=== PATIENT | male | born 1995 | race Caucasian/White ===

== ENCOUNTER 2017-02-08 20:21 | Emergency (ER) | payer BC ==
[2017-02-08] MEDS ORDERED: TORAdol 30 mg Injection IV ONE (20:47)
[2017-02-08] MEDS ORDERED: BENADRYL 50 MG/ML IV ONE (20:47)
[2017-02-08] MEDS ORDERED: Sodium Chloride 0.9% 1000 ML 1,000 ML IV STA (20:47)
--- NOTE | 2017-02-08 20:51 | ERPHSYRPT ---
- History of Present Illness Time Seen by Provider: 02/08/17 20:49 Source: patient Exam Limitations: no limitations Patient Subjective Stated Complaint: pt has been having a headache for 3 days states it goes from the occipital are to the forehead no releif with advil -no history of headaches no fever no injury -fanily thinks its stress pt denies - sometimes painis so bad he can't think Triage Nursing Assessment: pt is awake and alert and able to answer questions Physician History: 21-year-old white male with history of seasonal allergies Arrives with complaint of a headache begins any sacral region and radiates to the frontal region symptoms going on for 2-3 days. Patient without nausea vomiting diaphoresis patient without any focal neurologic symptoms. Past medical history seasonal allergies Timing/Duration: day(s) (2-3 days) Severity: moderate Modifying Factors: Improves With: nothing Associated Symptoms: No nausea, No vomiting, No abdominal pain, No shortness of breath, No heartburn, No diaphoresis, No cough, No chills, No chest pain, No fever, No headaches, No loss of appetite, No malaise, No rash, No syncope, No seizure, No weakness Allergies/Adverse Reactions: No Known Drug Allergies Allergy (Unverified 02/08/17 20:47) Hx Tetanus, Diphtheria Vaccination/Date Given: No Hx Influenza Vaccination/Date Given: No Hx Pneumococcal Vaccination/Date Given: No Immunizations Up to Date: No - Review of Systems Constitutional: No Fever, No Chills Eyes: No Symptoms, No Discharge, No Eye Pain, No Eye Redness, No Itchy, No Photophobia, No Tearing, No Vision Changes, No Double Vision Ears, Nose, & Throat: No Symptoms Respiratory: No Cough, No Dyspnea Cardiac: No Chest Pain, No Edema, No Syncope Abdominal/Gastrointestinal: No Abdominal Pain, No Nausea, No Vomiting, No Diarrhea Genitourinary Symptoms: No Dysuria Musculoskeletal: No Back Pain, No Neck Pain Skin: No Rash Neurological: Headache, No Focal Weakness, No Gait Changes, No Irritability, No Lethargy, No Paralysis, No Parasthesia, No Seizure, No Sensory Changes, No Speech Changes, No Tics, No Tremors, No Vertigo Psychological: No Symptoms Endocrine: No Symptoms All Other Systems: Reviewed and Negative - Past Medical History Pertinent Past Medical History: No Other Medical History: seasonal allergies - Past Surgical History Past Surgical History: No - Social History Smoking Status: Former smoker Exposure to second hand smoke: No Drug Use: none Patient Lives Alone: No - Nursing Vital Signs Nursing Vital Signs: Initial Vital Signs Temperature 97.8 F Temperature Source Oral Pulse Rate 78 Respiratory Rate 18 Blood Pressure [] 125/78 Pain Intensity 10 - Physical Exam General Appearance: no apparent distress, alert Eye Exam: PERRL/EOMI, eyes nml inspection Ears, Nose, Throat Exam: normal ENT inspection, TMs normal, pharynx normal, moist mucous membranes Neck Exam: normal inspection, non-tender, supple, full range of motion Respiratory Exam: normal breath sounds, lungs clear, No respiratory distress Cardiovascular Exam: regular rate/rhythm, normal heart sounds, normal peripheral pulses Gastrointestinal/Abdomen Exam: soft, normal bowel sounds, No tenderness, No mass Back Exam: normal inspection, normal range of motion, No CVA tenderness, No vertebral tenderness Extremity Exam: normal inspection, normal range of motion, pelvis stable Neurologic Exam: alert, oriented x 3, cooperative, normal mood/affect, nml cerebellar function, nml station & gait, sensation nml, No motor deficits Skin Exam: normal color, warm, dry, No rash Lymphatic Exam: No adenopathy SpO2 Interpretation: normal (99%) SpO2: 99 Oxygen Delivery: Room Air - Course Nursing assessment & vital signs reviewed: Yes - CT Exams Head CT Interpretation: Tele-radiologist Report, Other (Head CT: Normal head/ brain CT) Ordered Tests: Active Orders 24 hr Category Date Time Status IV Insertion STAT Care 02/08/17 20:48 Active HEAD WITHOUT CONTRAST [CT] Stat Exams 02/08/17 21:24 Taken CBC W DIFF Stat Lab 02/08/17 21:15 Completed CMP Stat Lab 02/08/17 21:15 Completed Manual Differential NC Stat Lab 02/08/17 21:15 Completed Medication Summary Discontinued Medications Generic Name Dose Route Start Last Admin Trade Name Rogelio PRN Reason Stop Dose Admin Acetaminophen 650 mg 02/08/17 21:40 02/08/17 21:44 Tylenol 325 Mg PO 02/08/17 21:41 650 mg STAT ONE Administration Acetaminophen Confirm 02/08/17 21:42 Tylenol 325 Mg Administered 02/08/17 21:43 Dose 650 mg .ROUTE .STK-MED ONE Diphenhydramine HCl 25 mg 02/08/17 20:47 02/08/17 20:55 Benadryl 50 Mg/Ml IV 02/08/17 20:48 25 mg STAT ONE Administration Diphenhydramine HCl Confirm 02/08/17 20:52 Benadryl 50 Mg/Ml Administered 02/08/17 20:53 Dose 50 mg .ROUTE .STK-MED ONE Sodium Chloride 1,000 mls @ 999 mls/hr 02/08/17 20:47 02/08/17 20:55 Sodium Chloride 0.9% 1000 Ml IV 02/08/17 21:47 999 mls/hr .Q1H1M STA Administration Sodium Chloride Confirm 02/08/17 20:52 Sodium Chloride 0.9% 1000 Ml Administered 02/08/17 20:53 Dose 1,000 mls @ ud .ROUTE .STK-MED ONE Ketorolac Tromethamine 30 mg 02/08/17 20:47 02/08/17 20:55 Toradol 30 Mg Injection IV 02/08/17 20:48 30 mg STAT ONE Administration Ketorolac Tromethamine Confirm 02/08/17 20:52 Toradol 30 Mg Injection Administered 02/08/17 20:53 Dose 30 mg .ROUTE .STK-MED ONE Morphine Sulfate 4 mg 02/08/17 22:45 Morphine Sulfate 4 Mg Inj IV 02/08/17 22:46 STAT ONE Morphine Sulfate Confirm 02/08/17 22:48 Morphine Sulfate 4 Mg Inj Administered 02/08/17 22:49 Dose 4 mg .ROUTE .STK-MED ONE Lab/Rad Data: Laboratory Result Diagrams 02/08/17 21:15 02/08/17 21:15 Laboratory Results 02/08/17 02/08/17 Range/Units 21:15 21:15 WBC 9.4 (4.0-10.5) K/mm3 RBC 4.67 (4.1-5.6) M/mm3 Hgb 14.1 (12.5-18.0) gm/dl Hct 42.6 (42-50) % MCV 91.2 (78-100) fl MCH 30.2 (26-32) pg MCHC 33.1 (32-36) g/dl RDW 13.9 (11.5-14.0) % Plt Count 307 (150-450) K/mm3 MPV 9.8 H (6-9.5) fl Segmented Neutrophils 55 (36.-66.) % Band Neutrophils 1 (0.0-2.0) % Lymphocytes (Manual) 29 (24-44) % Monocytes (Manual) 8 (0.0-12.0) % Eosinophils (Manual) 5 H (0.00-3.0) % Differential Comment NORMAL Atypical Lymphocytes 2 % Platelet Estimate NORMAL (NORMAL) Sodium 141 (136-145) mEq/L Potassium 4.1 (3.5-5.1) mEq/L Chloride 105 (98-107) mEq/L Carbon Dioxide 24.1 (21-32) mEq/L Anion Gap 15.5 H (5-15) MEQ/L BUN 10 (9-20) mg/dL Creatinine 0.96 (0.55-1.30) mg/dl Estimated GFR > 60 ML/MIN Glucose 93 (70-110) MG/DL Calcium 8.8 (8.5-10.1) mg/dL Total Bilirubin 0.20 (0.2-1.0) mg/dL AST 41 H (15-37) U/L ALT 46 (12-78) U/L Alkaline Phosphatase 80 (46-116) U/L Serum Total Protein 7.1 (6.4-8.2) gm/dL Albumin 3.5 (3.4-5.0) g/dL - Progress Progress: improved Progress Note: 02/08/17 21:24 Patient slightly improved with still has a headache after Toradol and Benadryl he is receiving IV fluids labs are pending. Will go ahead and obtain CT of the head without contrast. 02/08/17 22:46 Patient states he continues to have a headache. Patient's physical examination within normal limits head CT normal labs normal vitals normal. Will go ahead and give patient 4 mg of morphine IV. Plan to discharge home rest. Will write a limited amount of [place] for pain. Patient to follow-up with his family doctor if symptoms persist tomorrow. - Departure Time of Disposition: 22:47 Departure Disposition: Home Clinical Impression: Headache Qualifiers: Headache type: unspecified Headache chronicity pattern: acute headache Intractability: not intractable Qualified Code(s): R51 - Headache Condition: Fair Critical Care Time: No Referrals: JENELLE REZA [Primary Care Provider] - Instructions: Headache Additional Instructions: Return home rest, dark quiet room. [place] 5/325 #10 one orally every 4-6 hours as needed for pain. Continue Advil 2-3 tablets ([id number]) every 6 hours as needed for pain. Follow-up with your family tomorrow if symptoms no better tomorrow or persist more than 48 hours. Return for acute distress or for severe symptoms. Prescriptions: Hydrocodone/Acetaminophen [[place] 5-325 Tablet] 1 each PO Q4-6HPRN PRN #10 tablet PRN Reason: Pain
[2017-02-08] MEDS ORDERED: TORAdol 30 mg Injection ONE (20:52)
[2017-02-08] MEDS ORDERED: Sodium Chloride 0.9% 1000 ML 1,000 ML ONE (20:52)
[2017-02-08] MEDS ORDERED: BENADRYL 50 MG/ML ONE (20:52)
[2017-02-08 21:22] LABS: Mean Cell Volume 91.2 fl (78-100); Mean Corpuscular Hemoglobin 30.2 pg (26-32); Mean Platelet Volume 9.8 fl (6-9.5); Platelet Count 307 K/mm3 (150-450); Red Blood Count 4.67 M/mm3 (4.1-5.6); Red Cell Distribution Width 13.9 % (11.5-14.0); White Blood Count 9.4 K/mm3 (4.0-10.5)
[2017-02-08] MEDS ORDERED: TYLENOL 325 MG PO ONE (21:40)
[2017-02-08 21:41] LABS: ALBUMIN 3.5 g/dL (3.4-5.0); ALKALINE PHOSPHATASE 80 U/L (46-116); ANION GAP 15.5 MEQ/L (5-15); BLOOD UREA NITROGEN 10 mg/dL (9-20); CHLORIDE 105 mEq/L (98-107); Carbon Dioxide 24.1 mEq/L (21-32); Glucose 93 MG/DL (70-110); Potassium 4.1 mEq/L (3.5-5.1); SGOT/AST 41 U/L (15-37); SGPT/ALT 46 U/L (12-78); SODIUM 141 mEq/L (136-145); Total Protein 7.1 gm/dL (6.4-8.2)
[2017-02-08] MEDS ORDERED: TYLENOL 325 MG ONE (21:42)
[2017-02-08 22:39] LABS: ATYPICAL LYMPHS 2 %; BAND 1 % (0.0-2.0); Eosinophil 5 % (0.00-3.0); Platelet Estimate NORMAL (NORMAL); Total Cells Counted 100
[2017-02-08] MEDS ORDERED: MORPHINE SULFATE 4 MG INJ IV ONE (22:45)
[2017-02-08] MEDS ORDERED: MORPHINE SULFATE 4 MG INJ ONE (22:48)
[2017-02-08 23:08] VITALS: BP 130/86; PULSE 76; O2SAT 98
--- NOTE | 2017-02-09 19:55 | XRAY ---
Exam: CT of the head without IV contrast from 02/08/2017. CTDI: 67.22 Comparison: None. Indication: 21-year-old male with headache for 3 days which radiates from his occiput to his forehead, no prior history of headaches. Technique: Non-IV contrast axial images were obtained through the brain. Reconstructed coronal and sagittal images were created and reviewed. Findings: The ventricles are of normal size and are midline. No focal mass effect is seen. I see no evidence of acute intracranial bleed or abnormal extra-axial fluid collection. No low attenuation territorial infarct is seen. The borges matter-white matter interfaces appear unremarkable. Structures of the posterior fossa appear unremarkable. The cortical sulci appear normal for age. The calvarium of the skull appears intact. There is a paucity of mastoid air cells which is apparently congenital/developmental. I note some minimal mucosal thickening along the margins of the superior aspect of both maxillary sinuses medially and anteriorly. There is also some mild scattered soft tissue density/mucosal thickening within the ethmoid sinuses bilaterally. These findings are likely chronic. The frontal sinuses and sphenoid sinus appear clear. I believe there is a lesly bullosa within the left middle nasal turbinate. The orbits appear unremarkable. Impression: 1. No acute intracranial bleed or other acute brain process is seen. 2. Mild chronic sinus disease/sinusitis affecting the visualized upper portion of the maxillary sinuses and the ethmoid sinus complex bilaterally. No air-fluid levels are seen.
== END 2017-02-08 23:15 | disposition home or self-care (01) ==
LOC: ED 20:21
DX: R51 Headache (principal)
CPT/HCPCS: 36000; 36415; 70450; 80053; 85025; 96360; 96374; 96375; 99284; J1200; J1885; J2270; A9270-GY

== ENCOUNTER 2020-03-09 01:35 | Emergency (ER) | payer BC ==
--- NOTE | 2020-03-09 02:07 | ERPHSYRPT ---
- History of Present Illness Time Seen by Provider: 03/09/20 02:02 Source: patient, family Exam Limitations: no limitations Physician History: pt has rash in groin and was starting nystatin topical and developed swelling of foreskin with erythema soon after application. No urinary symptoms or discharge reported. no abd pain or N/V or other symptoms. Timing/Duration: yesterday Activites at Onset: none Onset Location: other (penis) Pain Radiation: none Severity of Pain-Max: mild Severity of Pain-Current: mild Modifying Factors: Improves With: nothing Associated Symptoms: swelling Prior abdominal problems: none Sexual intercourse history: non-contributory Allergies/Adverse Reactions: Penicillins Allergy (Unknown, Verified 03/09/20 02:19) Home Medications: Sulfamethoxazole/Trimethoprim [Sulfamethoxazole-Tmp Ds Tablet] 1 tab PO BID 03/09/20 [History] Hx Tetanus, Diphtheria Vaccination/Date Given: No Hx Influenza Vaccination/Date Given: No Hx Pneumococcal Vaccination/Date Given: No - Past Medical History Pertinent Past Medical History: No Other Medical History: seasonal allergies - Past Surgical History Past Surgical History: No - Social History Smoking Status: Former smoker Exposure to second hand smoke: No Drug Use: none Patient Lives Alone: No - Review of Systems Constitutional: No Fever, No Chills Eyes: No Symptoms Ears, Nose, & Throat: No Symptoms Respiratory: No Cough, No Dyspnea Cardiac: No Chest Pain, No Edema, No Syncope Abdominal/Gastrointestinal: No Abdominal Pain, No Nausea, No Vomiting, No Diarrhea Genitourinary Symptoms: No Dysuria Musculoskeletal: No Back Pain, No Neck Pain Skin: Rash (intertrigo / groin rash) Neurological: No Dizziness, No Focal Weakness, No Sensory Changes Psychological: No Symptoms Endocrine: No Symptoms Hematologic/Lymphatic: No Symptoms Immunological/Allergic: No Symptoms All Other Systems: Reviewed and Negative - Nursing Vital Signs Nursing Vital Signs: Initial Vital Signs Temperature 99.3 F 03/09/20 01:59 Pulse Rate 112 H 03/09/20 01:59 Respiratory Rate 20 03/09/20 01:59 Blood Pressure 157/100 03/09/20 01:59 O2 Sat by Pulse Oximetry 97 03/09/20 01:59 Pain Scale Pain Intensity 10 - Physical Exam General Appearance: no apparent distress, alert Eye Exam: PERRL/EOMI Ears, Nose, Throat Exam: pharynx normal, moist mucous membranes Neck Exam: normal inspection, supple Respiratory Exam: normal breath sounds, lungs clear Cardiovascular Exam: regular rate/rhythm, No edema Gastrointestinal/Abdomen Exam: soft, No tenderness Rectal Exam: deferred Male Genital Exam: erythema (and swelling of part of foreskin with irritation), uncircumcised Back Exam: normal inspection, No CVA tenderness Extremity Exam: normal inspection, normal range of motion, No pedal edema Neurologic Exam: alert, oriented x 3, cooperative, sensation nml, No motor deficits Skin Exam: normal color, warm, dry, No rash - Course Nursing assessment & vital signs reviewed: Yes Ordered Tests: Active Orders 24 hr Category Date Time Status IV Insertion STAT Care 03/09/20 02:11 Active Wound Care ROUTINE Care 03/09/20 02:11 Active CULTURE,WOUND Stat Lab 03/09/20 02:20 Ordered UA W/RFX UR CULTURE Stat Lab 03/09/20 02:20 Ordered Medication Summary Generic Name Dose Route Start Last Admin Trade Name Freq PRN Reason Stop Dose Admin Sodium Chloride 1,000 mls @ 999 mls/hr 03/09/20 02:11 Sodium Chloride 0.9% 1000 Ml IV 03/09/20 03:11 .Q1H1M STA Discontinued Medications Generic Name Dose Route Start Last Admin Trade Name Freq PRN Reason Stop Dose Admin Dexamethasone Sodium Phosphate 10 mg 03/09/20 02:15 Decadron 4 Mg Inj IV 03/09/20 02:16 STAT ONE Dexamethasone Sodium Phosphate Confirm 03/09/20 02:35 Decadron 4 Mg Inj Administered 03/09/20 02:36 Dose 12 mg .ROUTE .STK-MED ONE Diphtheria/Tetanus/Acell Pertussis 0.5 ml 03/09/20 02:11 Adacel Vial IM 03/09/20 02:12 .ONCE ONE Diphtheria/Tetanus/Acell Pertussis Confirm 03/09/20 02:35 Adacel Vial Administered 03/09/20 02:36 Dose 0.5 ml IM .STK-MED ONE Ceftriaxone Sodium/Dextrose 1 g in 50 mls @ 100 mls/hr 03/09/20 02:15 Rocephin 1 Gm-D5w 50 Ml Bag IV 03/09/20 02:44 STAT STA Sodium Chloride Confirm 03/09/20 02:35 Sodium Chloride 0.9% 1000 Ml Administered 03/09/20 02:36 Dose 1,000 mls @ ud .ROUTE .STK-MED ONE Ceftriaxone Sodium/Dextrose Confirm 03/09/20 02:35 Rocephin 1 Gm-D5w 50 Ml Bag Administered 03/09/20 02:36 Dose 1 g in 50 mls @ ud IV .STK-MED ONE Mupirocin 22 gm 03/09/20 02:15 Bactroban Ointment TP 03/09/20 02:16 STAT ONE - Progress Progress: improved, re-examined Progress Note: 03/09/20 02:46 per pt swelling has gone down a lot since yesterday and skin is peeling- the foreskin can be retratcted and pulled down without problems and there is no phimosis or paraphimosis. Counseled pt/family regarding: lab results, diagnosis, need for follow-up - Departure Departure Disposition: Home Clinical Impression: Balanitis, foreskin reaction Condition: Good Critical Care Time: No Referrals: JENELLE REZA [Primary Care Provider] - Instructions: Balanitis (DC), Adverse Drug Reactions, Adult (DC), High Blood Pressure (DC) Additional Instructions: see your Dr tuesday to recheck area and for culture results to adjust antibiotics. return meantime if swelling returns or other concerns. continue septra. use bactroban on area twice a day until healed. may use lotrimin spray or cream for the rash instead of nystatin ( stop nystatin) followup with your Dr. for blood pressure to recheck and consider treatment if remains elevated.
[2020-03-09] MEDS ORDERED: Sodium Chloride 0.9% 1000 ML 1,000 ML IV STA (02:11)
[2020-03-09] MEDS ORDERED: Adacel Vial IM ONE ×2 (02:11→02:35)
[2020-03-09] MEDS ORDERED: Decadron 4 MG INJ IV ONE (02:15)
[2020-03-09] MEDS ORDERED: ROCEPHIN 1 Gm-D5w 50 ml Bag** 1 G/50 ML IVPB IV STA (02:15)
[2020-03-09] MEDS ORDERED: Bactroban OINTMENT TP ONE (02:15)
[2020-03-09] MEDS ORDERED: Decadron 4 MG INJ ONE (02:35)
[2020-03-09] MEDS ORDERED: Sodium Chloride 0.9% 1000 ML 1,000 ML ONE (02:35)
[2020-03-09] MEDS ORDERED: ROCEPHIN 1 Gm-D5w 50 ml Bag** 0 G/0 ML IVPB IV ONE (02:35)
[2020-03-09 03:07] LABS: Appearance CLEAR (CLEAR); Bilirubin NEGATIVE (NEGATIVE); Blood NEGATIVE Ery/ul (0-5); Glucose NEGATIVE (NEGATIVE); Hyaline Casts 0-2 /LPF (0-2); Ketones NEGATIVE (NEGATIVE); Leukocyte Esterase NEGATIVE (NEGATIVE); Mucus SLIGHT /HPF (NEGATIVE); Nitrite NEGATIVE (NEGATIVE); Protein,Urine Dip NEGATIVE (Negative); Urobilinogen NEGATIVE mg/dL (0-1); WBC 0-2 /HPF (0-5)
[2020-03-09 03:08] LABS: Bacteria NONE SEEN /HPF (NEGATIVE)
[2020-03-09 03:31] VITALS: BP 131/91; PULSE 89; O2SAT 96
== END 2020-03-09 03:36 | disposition home or self-care (01) ==
LOC: ED 01:35
DX: N48.1 Balanitis (principal)
CPT/HCPCS: 81001; 87070; 87077; 87186; 90471; 90715; 96374; 99284; J0696; J1100; A9270-GY

== ENCOUNTER 2021-04-12 22:00 | Observation (INO) | payer BC ==
[2021-04-12] MEDS ORDERED: DECADRON 10MG INJ. IV ONE (22:44)
[2021-04-12] MEDS ORDERED: DECADRON 10MG INJ. ONE (22:47)
[2021-04-12 22:51] LABS: Hematocrit 40.4 % (42-50); Hemoglobin 12.9 gm/dl (12.5-18.0); Mean Cell Volume 92.9 fl (78-100); Mean Corpuscular Hemoglobin 29.7 pg (26-32); Mean Corpuscular Hgb Concent. 31.9 g/dl (32-36); Mean Platelet Volume 10.3 fl (7.5-11.0); Platelet Count 188 K/mm3 (150-450); Red Blood Count 4.35 M/mm3 (4.1-5.6); Red Cell Distribution Width 14.4 % (11.5-14.0); White Blood Count 6.8 K/mm3 (4.0-10.5)
--- NOTE | 2021-04-12 22:57 | ERPHSYRPT ---
- History of Present Illness Time Seen by Provider: 04/12/21 22:02 Source: patient Exam Limitations: no limitations Patient Subjective Stated Complaint: pt states he tested positive for covid on tuesday and has been having symptoms since tuesdayapr 04. states he has had s ome shortness of breath since last night and o2 sat at home was 92 Triage Nursing Assessment: pt alert and oriented, answers questions approp. pt ambulatory with steady gait noted. respirations nonlabored. insp and exp wheezes noted in rt upper lobe. skin warm and dry. Physician History: 25 years old morbidly obese male with positive COVID-19 almost a week ago presented with worsening shortness of breath and cough since yesterday. Patient reports it started with URI congestion followed by cough and gradually increasing shortness of breath which got worse yesterday. Having aches and pains all over with generalized weakness fatigue and tiredness. No vomiting or diarrhea. Patient reports getting shortness of breath with deep breathing and minimal activity and at home his oxygen saturation was dropping to 90-92%. On presentation in his ER his oxygen is 90%, placed on 2 L and currently around 94%. Subjective feeling of fever and chills. Timing/Duration: week(s) (1), constant, gradual onset, worse Cough Quality/Degree: moderate, dry cough, productive cough Possible Cause: no prior episodes Modifying Factors: Improves With: rest. Worsens With: coughing, deep breath, exertion Associated Symptoms: fever, chills, chest pain/soreness, cough, headache, lightheadedness, muscle aches, nasal congestion, shortness of breath, sinus infection, sore throat, wheezing Allergies/Adverse Reactions: Penicillins Allergy (Unknown, Verified 04/12/21 22:31) Home Medications: Bupropion HCl Xl 150 mg [Wellbutrin XL 150 MG] 150 mg PO BID 04/12/21 [History] Hx Tetanus, Diphtheria Vaccination/Date Given: Yes Hx Influenza Vaccination/Date Given: No Hx Pneumococcal Vaccination/Date Given: No Immunizations Up to Date: Yes Travel Risk - International Travel Have you traveled outside of the country in past 3 weeks: No - Coronavirus Screening Are you exhibiting any of the following symptoms?: Yes Symptoms: Fever, Cough: New Onset, Shortness of Breath, Headaches/Body Aches/Fatigue - Vaccine Status Have you recieved a Covid-19 vaccination: No - Review of Systems Constitutional: Fever, Chills, Fatigue, Weakness Eyes: No Symptoms Ears, Nose, & Throat: Nose Congestion, Throat Pain Respiratory: Cough, Dyspnea, Wheezing Cardiac: Chest Pain Abdominal/Gastrointestinal: No Symptoms Genitourinary Symptoms: No Symptoms Musculoskeletal: Injury, Myalgias Skin: No Symptoms Neurological: Headache Psychological: No Symptoms Endocrine: No Symptoms Hematologic/Lymphatic: No Symptoms Immunological/Allergic: No Symptoms - Past Medical History Pertinent Past Medical History: No Other Medical History: seasonal allergies - Past Surgical History Past Surgical History: No - Social History Smoking Status: Former smoker Exposure to second hand smoke: No Drug Use: none Patient Lives Alone: No - Nursing Vital Signs Nursing Vital Signs: Initial Vital Signs Temperature 98.3 F 04/12/21 22:19 Pulse Rate 112 H 04/12/21 22:19 Respiratory Rate 18 04/12/21 22:19 Blood Pressure 126/80 04/12/21 22:19 O2 Sat by Pulse Oximetry 93 L 04/12/21 22:19 Pain Scale Pain Intensity 5 - Physical Exam General Appearance: no apparent distress, alert Eye Exam: PERRL/EOMI, eyes nml inspection Ears, Nose, Throat Exam: TMs normal, pharyngeal erythema Neck Exam: normal inspection, non-tender, full range of motion Respiratory Exam: diminished breath sounds, rhonchi, wheezing, No respiratory distress, No accessory muscle use Cardiovascular Exam: normal heart sounds, tachycardia Gastrointestinal/Abdomen Exam: soft, normal bowel sounds, No tenderness Back Exam: normal inspection, normal range of motion Extremity Exam: normal inspection, normal range of motion Neurologic Exam: alert, oriented x 3, cooperative, print graphic designer II-XII nml as tested Skin Exam: normal color SpO2 Interpretation: normal SpO2: 93 O2 Delivery: Room Air - Course EKG Interpreted by Me: RATE ([id number]), Sinus Tach, NORMAL AXIS, NORMAL INTERVALS, NORMAL QRS Ordered Tests: Active Orders 24 hr Category Date Time Status Bail Attacher STAT Care 04/12/21 22:43 Active EKG-ER Only STAT Care 04/12/21 22:43 Active IV Insertion STAT Care 04/12/21 22:43 Active Oxygen-ED Only Nasal Cannula 2 lpm Care 04/12/21 22:43 Active CHEST 1 VIEW (PORTABLE) Stat Exams 04/12/21 22:43 Taken BLOOD CULTURE Stat Lab 04/12/21 23:10 Received CBC W DIFF Stat Lab 04/12/21 22:30 Completed CMP Stat Lab 04/12/21 22:30 Completed D-DIMER QUANTITATIVE Stat Lab 04/12/21 23:10 Completed Lactic Acid Stat Lab 04/12/21 22:43 Completed MAGNESIUM Stat Lab 04/12/21 22:30 Completed Manual Differential NC Stat Lab 04/12/21 22:30 Completed TROPONIN Q3H Lab 04/12/21 22:30 Completed TROPONIN Q3H Lab 04/13/21 01:45 Ordered TROPONIN Q3H Lab 04/13/21 04:45 Ordered TROPONIN Q3H Lab 04/13/21 07:45 Ordered TROPONIN Q3H Lab 04/13/21 10:45 Ordered UA W/RFX UR CULTURE Stat Lab 04/12/21 23:28 Completed Transfer Order Routine Transfer 04/12/21 Ordered Medication Summary Generic Name Dose Route Start Last Admin Trade Name Rogelio PRN Reason Stop Dose Admin Levofloxacin/Dextrose 750 mg in 150 mls @ 100 mls/hr 04/12/21 23:40 04/12/21 23:56 Levofloxacin 750mg/150ml D5w IV 04/13/21 01:09 100 ml/hr STAT STA 100 mls/hr Administration Remdesivir 200 mg/ Sodium 250 mls @ 125 mls/hr 04/12/21 23:43 Chloride IV 04/13/21 01:42 ONCE ONE Discontinued Medications Generic Name Dose Route Start Last Admin Trade Name Rogelio PRN Reason Stop Dose Admin Acetaminophen 975 mg 04/13/21 00:03 04/13/21 00:05 Tylenol 325 Mg PO 04/13/21 00:04 975 mg STAT STA Administration Dexamethasone Sodium Phosphate 6 mg 04/12/21 22:44 04/12/21 22:47 Decadron 10mg Inj. IV 04/12/21 22:45 6 mg STAT ONE Administration Dexamethasone Sodium Phosphate Confirm 04/12/21 22:47 Decadron 10mg Inj. Administered 04/12/21 22:48 Dose 10 mg .ROUTE .STK-MED ONE Levofloxacin/Dextrose Confirm 04/12/21 23:50 Levofloxacin 750mg/150ml D5w Administered 04/12/21 23:51 Dose 750 mg in 150 mls @ ud IV .STK-MED ONE Lab/Rad Data: Laboratory Result Diagrams 04/12/21 22:30 04/12/21 22:30 Laboratory Results 04/12/21 04/12/21 04/12/21 Range/Units 23:28 23:10 22:43 WBC (4.0-10.5) K/mm3 RBC (4.1-5.6) M/mm3 Hgb (12.5-18.0) gm/dl Hct (42-50) % MCV (78-100) fl MCH (26-32) pg MCHC (32-36) g/dl RDW (11.5-14.0) % Plt Count (150-450) K/mm3 MPV (7.5-11.0) fl Segmented Neutrophils (36.-66.) % Band Neutrophils (0.0-2.0) % Lymphocytes (Manual) (24-44) % Monocytes (Manual) (0.0-12.0) % Eosinophils (Manual) (0.00-3.0) % Basophils (Manual) (0.0-1.0) % Platelet Estimate (NORMAL) RBC Morphology D-Dimer 492 (215-500) ng/mL Sodium (137-145) mmol/L Potassium (3.5-5.1) mmol/L Chloride (98-107) mmol/L Carbon Dioxide (22-30) mmol/L Anion Gap (5-15) MEQ/L BUN (9-20) mg/dL Creatinine (0.66-1.25) mg/dL Estimated GFR ML/MIN Glucose (74-106) mg/dL Lactic Acid 1.4 (0.4-2.0) Calcium (8.4-10.2) mg/dL Magnesium (1.6-2.3) mg/dL Total Bilirubin (0.2-1.3) mg/dL AST (17-59) U/L ALT (0-50) U/L Alkaline Phosphatase (38-126) U/L Troponin I (0.000-0.034) ng/mL Serum Total Protein (6.3-8.2) g/dL Albumin (3.5-5.0) g/dL Urine Color YELLOW (YELLOW) Urine Appearance CLEAR (CLEAR) Urine pH 6.0 (5-6) Ur Specific [place] 1.023 (1.005-1.025) Urine Protein NEGATIVE (Negative) Urine Ketones NEGATIVE (NEGATIVE) Urine Blood SMALL (0-5) Hugo/ul Urine Nitrite NEGATIVE (NEGATIVE) Urine Bilirubin NEGATIVE (NEGATIVE) Urine Urobilinogen NEGATIVE (0-1) mg/dL Ur Leukocyte Esterase NEGATIVE (NEGATIVE) Urine WBC (Auto) NONE (0-5) /HPF Urine RBC (Auto) 11-15 (0-2) /HPF U Epithel Cells (Auto) NONE (FEW) /HPF Urine Bacteria (Auto) NONE (NEGATIVE) /HPF Urine Mucus (Auto) SLIGHT (NEGATIVE) /HPF Urine Culture Reflexed NO (NO) Urine Glucose NEGATIVE (NEGATIVE) mg/dL 04/12/21 04/12/21 04/12/21 Range/Units 22:30 22:30 22:30 WBC 6.8 (4.0-10.5) K/mm3 RBC 4.35 (4.1-5.6) M/mm3 Hgb 12.9 (12.5-18.0) gm/dl Hct 40.4 L (42-50) % MCV 92.9 (78-100) fl MCH 29.7 (26-32) pg MCHC 31.9 L (32-36) g/dl RDW 14.4 H (11.5-14.0) % Plt Count 188 (150-450) K/mm3 MPV 10.3 (7.5-11.0) fl Segmented Neutrophils 59 (36.-66.) % Band Neutrophils 6 H (0.0-2.0) % Lymphocytes (Manual) 23 L (24-44) % Monocytes (Manual) 10 (0.0-12.0) % Eosinophils (Manual) 1 (0.00-3.0) % Basophils (Manual) 1 (0.0-1.0) % Platelet Estimate NORMAL (NORMAL) RBC Morphology NORMAL D-Dimer (215-500) ng/mL Sodium 138 (137-145) mmol/L Potassium 4.0 (3.5-5.1) mmol/L Chloride 100 (98-107) mmol/L Carbon Dioxide 28 (22-30) mmol/L Anion Gap 14.6 (5-15) MEQ/L BUN 8 L (9-20) mg/dL Creatinine 0.74 (0.66-1.25) mg/dL Estimated GFR > 60.0 ML/MIN Glucose 145 H (74-106) mg/dL Lactic Acid (0.4-2.0) Calcium 8.4 (8.4-10.2) mg/dL Magnesium 2.0 (1.6-2.3) mg/dL Total Bilirubin 0.30 (0.2-1.3) mg/dL AST 66 H (17-59) U/L ALT 49 (0-50) U/L Alkaline Phosphatase 85 (38-126) U/L Troponin I < 0.012 (0.000-0.034) ng/mL Serum Total Protein 7.4 (6.3-8.2) g/dL Albumin 4.0 (3.5-5.0) g/dL Urine Color (YELLOW) Urine Appearance (CLEAR) Urine pH (5-6) Ur Specific [place] (1.005-1.025) Urine Protein (Negative) Urine Ketones (NEGATIVE) Urine Blood (0-5) Hugo/ul Urine Nitrite (NEGATIVE) Urine Bilirubin (NEGATIVE) Urine Urobilinogen (0-1) mg/dL Ur Leukocyte Esterase (NEGATIVE) Urine WBC (Auto) (0-5) /HPF Urine RBC (Auto) (0-2) /HPF U Epithel Cells (Auto) (FEW) /HPF Urine Bacteria (Auto) (NEGATIVE) /HPF Urine Mucus (Auto) (NEGATIVE) /HPF Urine Culture Reflexed (NO) Urine Glucose (NEGATIVE) mg/dL - Progress Progress: improved Air Movement: fair Progress Note: 04/12/21 23:43 25 years old morbidly obese is evaluated for increasing cough and shortness of breath. Patient's oxygen is borderline around 90% on room air with resting and on 2 L is around 93/94%. Bilateral airspace disease on x-rays. Lab work grossly unremarkable. Given a dose of antibiotic along with Decadron and remdesivir. Discussed with Dr. Morgan and patient is accepted for admission. Has negative D-dimers. Blood Culture(s) Obtained: Yes Antibiotics given: Yes Discussed with Dr.: Other (Dr. Amin) Will see patient in: hospital (observation) Counseled pt/family regarding: lab results, diagnosis, need for follow-up, rad results - Departure Departure Disposition: Observation Clinical Impression: COVID-19 Bilateral pneumonia Qualifiers: Pneumonia type: due to unspecified organism Lung location: unspecified part of lung Qualified Code(s): J18.9 - Pneumonia, unspecified organism Condition: Stable Critical Care Time: No Referrals: AIDAN WYATT NP [Primary Care Provider] -
[2021-04-12 23:01] LABS: ALKALINE PHOSPHATASE 85 U/L (38-126); ANION GAP 14.6 MEQ/L (5-15); BLOOD UREA NITROGEN 8 mg/dL (9-20); CHLORIDE 100 mmol/L (98-107); Calcium 8.4 mg/dL (8.4-10.2); Carbon Dioxide 28 mmol/L (22-30); Creatinine 1 0.74 mg/dL (0.66-1.25); EST GLOMERULAR FILTRATION RATE > 60.0 ML/MIN; Glucose 145 mg/dL (74-106); SGOT/AST 66 U/L (17-59); SGPT/ALT 49 U/L (0-50); SODIUM 138 mmol/L (137-145); Total Protein 7.4 g/dL (6.3-8.2)
[2021-04-12] MEDS ORDERED: LEVOFLOXACIN 750MG/150ML D5W 750 MG/150 ML BAG IV STA (23:40)
[2021-04-12] MEDS ORDERED: REMDESIVIR 200 MG in Sodium Chloride 0.9% 250 ML 250 ML IV ONE (23:43)
[2021-04-12 23:48] LABS: BAND 6 % (0.0-2.0); Basophil 1 % (0.0-1.0); Eosinophil 1 % (0.00-3.0); Lymphocytes 23 % (24-44); Monocyte 10 % (0.0-12.0); Neutrophils 59 % (36.-66.); Platelet Estimate NORMAL (NORMAL); Total Cells Counted 100
[2021-04-12 23:49] LABS: Appearance CLEAR (CLEAR); Bilirubin NEGATIVE (NEGATIVE); Blood SMALL Ery/ul (0-5); Glucose NEGATIVE (NEGATIVE); Ketones NEGATIVE (NEGATIVE); Leukocyte Esterase NEGATIVE (NEGATIVE); Mucus SLIGHT /HPF (NEGATIVE); Nitrite NEGATIVE (NEGATIVE); Protein,Urine Dip NEGATIVE (Negative); Specific Gravity 1.023 (1.005-1.025); Urobilinogen NEGATIVE mg/dL (0-1)
[2021-04-12] MEDS ORDERED: LEVOFLOXACIN 750MG/150ML D5W 750 MG/150 ML BAG IV ONE (23:50)
[2021-04-13] MEDS ORDERED: TYLENOL 325 MG PO STA (00:03)
[2021-04-13] MEDS ORDERED: TYLENOL 325 MG ONE (00:04)
[2021-04-13] MEDS ORDERED: TYLENOL 325 MG PO PRN (01:57)
[2021-04-13] MEDS ORDERED: Zofran 4 MG/2 ML VIAL IV PRN (01:57)
[2021-04-13] MEDS ORDERED: Sodium Chloride 0.9% 250 ML 250 ML IV ONE (02:09)
[2021-04-13] MEDS ORDERED: REMDESIVIR IV ONE (02:09)
[2021-04-13] MEDS ORDERED: REMDESIVIR 200 MG in Sodium Chloride 0.9% 250 ML 250 ML IV ONE (03:00)
[2021-04-13 06:44] LABS: Hematocrit 37.6 % (42-50); Hemoglobin 12.1 gm/dl (12.5-18.0); Mean Cell Volume 93.1 fl (78-100); Mean Corpuscular Hgb Concent. 32.2 g/dl (32-36); Mean Platelet Volume 10.1 fl (7.5-11.0); Platelet Count 193 K/mm3 (150-450); Red Blood Count 4.04 M/mm3 (4.1-5.6); Red Cell Distribution Width 14.4 % (11.5-14.0); White Blood Count 7.6 K/mm3 (4.0-10.5)
[2021-04-13 06:55] LABS: INR 1.22 (0.8-3.0); PROTIME 14.4 SECONDS (9.4-12.5)
[2021-04-13 07:09] LABS: BAND 6 % (0.0-2.0); Lymphocytes 16 % (24-44); Monocyte 4 % (0.0-12.0); Neutrophils 74 % (36.-66.); Platelet Estimate NORMAL (NORMAL); Total Cells Counted 100; Toxic Granulation 1+
[2021-04-13 07:52] LABS: ALBUMIN 3.9 g/dL (3.5-5.0); ALKALINE PHOSPHATASE 89 U/L (38-126); ANION GAP 15.6 MEQ/L (5-15); BLOOD UREA NITROGEN 7 mg/dL (9-20); CHLORIDE 100 mmol/L (98-107); Calcium 8.3 mg/dL (8.4-10.2); Carbon Dioxide 27 mmol/L (22-30); Creatinine 1 0.66 mg/dL (0.66-1.25); EST GLOMERULAR FILTRATION RATE > 60.0 ML/MIN; Glucose 148 mg/dL (74-106); Potassium 4.3 mmol/L (3.5-5.1); SGOT/AST 72 U/L (17-59); SGPT/ALT 53 U/L (0-50); SODIUM 138 mmol/L (137-145); Total Protein 7.1 g/dL (6.3-8.2)
[2021-04-13 07:58] VITALS: BP 122/76
--- NOTE | 2021-04-13 09:04 | XRAY ---
Indication: Short of breath and cough. Positive Covid 19. Comparison: January 21, 2017. Portable chest demonstrates new bilateral patchy airspace disease without consolidation/large effusion. Remaining heart and bony thorax unremarkable.
[2021-04-13] MEDS ORDERED: PROTONIX 40 MG IV IV SCH (10:00)
[2021-04-13] MEDS ORDERED: ENOXAPARIN SODIUM SQ SCH (10:00)
[2021-04-13] MEDS ORDERED: DECADRON 10MG INJ. IV SCH (10:00)
[2021-04-13 10:06] VITALS: PULSE 86; O2SAT 91
[2021-04-13] MEDS ORDERED: REMDESIVIR 100 MG in Sodium Chloride 0.9% 100 ML BAG 100 ML IV SCH (22:00)
[2021-04-13] MEDS ORDERED: LEVOFLOXACIN 750MG/150ML D5W 750 MG/150 ML BAG IV SCH (22:00)
--- NOTE | 2021-05-11 14:47 | DS ---
ADMISSION DIAGNOSES: 1) COVID pneumonia. 2) Anxiety disorder. 3) Allergies. 4) Arthritis. DISCHARGE DIAGNOSES: 1) COVID PNEUMONIA. 2) ANXIETY DISORDER. 3) ALLERGIES. 4) ARTHRITIS. DISCHARGE MEDICATIONS: Prednisone 40 x5, 20 x5 and 10 x5, home medicines, O2 at 2 liters. Call if his O2 saturations drop. Continue Wellbutrin, Breanna, ibuprofen. HOSPITAL COURSE: The patient was admitted with shortness of breath, cough and hypoxia. 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 He was sick several days before he came in. He had a positive test at [facility] and was admitted here. 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 He has a history of coronary artery disease. He has no angina. His home medicines are Wellbutrin, Breanna and ibuprofen. We discussed medication but he seemed cautious of cost of medications so he was advised to see his primary care doctor when he left. He had a terrible cough, shortness of breath, hypoxic for several days but improved finally to the usual Remdesivir, Decadron, anticoagulation, antibodies and was sent home on the above to follow up with his physician in two weeks. Remain isolated another ten days.
--- NOTE | 2021-05-21 10:08 | SSS ---
ADMISSION DIAGNOSIS: COVID. DISCHARGE DIAGNOSIS: COVID. HOSPITAL COURSE: The patient had symptoms start on 04/04/2021 of cough, shortness of breath, weakness, anxiety. He was initially treated as an outpatient at [facility]. On 04/12/2021, he was still feeling bad and came to our hospital for re-evaluation. His chest x-ray was not terribly bad. His O2's were normal. He felt bad with a lot of anxiety. He was watched overnight and he was reassured. CBC, CMP, D-dimer were normal. Chest is clear. Heart sounds regular. He was discharged home on Wellbutrin XR 150 twice a day, Tylenol, Breanna, ibuprofen and some prednisone 40 mg x5, 20 mg x5, 10 mg x5. Check his O2 and return if it drops below 89%. PROGNOSIS: Good.
== END 2021-04-13 11:00 | disposition home or self-care (01) ==
LOC: ED 22:00 → MED SURG 04-13 01:45
PROVIDERS: ADMIT Family Medicine; ATTEND Family Medicine
DX: U07.1 COVID-19 (principal); J12.82 Pneumonia due to coronavirus disease 2019; R53.1 Weakness; R51.9 Headache, unspecified; R42 Dizziness and giddiness; F41.9 Anxiety disorder, unspecified; M19.90 Unspecified osteoarthritis, unspecified site; T78.40XA Allergy, unspecified, initial encounter
CPT/HCPCS: 36000; 36415; 71045; 80053; 81001; 83036; 83605; 83735; 84484; 85025; 85379; 85610; 87040; 93005; 93041; 93268; 94761; 94762; 96360; 96374; 99285; G0378; J1100; J1956; A9270-GY

== ENCOUNTER 2021-04-17 06:41 | Inpatient (IN) | payer BC ==
[2021-04-17] MEDS ORDERED: Zofran 4 MG/2 ML VIAL ONE (07:08)
--- NOTE | 2021-04-17 07:10 | ERPHSYRPT ---
- History of Present Illness Time Seen by Provider: 04/17/21 07:00 Source: patient Exam Limitations: no limitations Physician History: This is a morbidly obese 25-year-old white male who has no medical history prior to his recent diagnosis of COVID-19 infection/pneumonia. Patient has not been vaccinated and was diagnosed with COVID-19 infection 4 to 5 days ago. He was seen in this emergency room on 04/13/2021 and was admitted overnight and then discharged to home the next day with a prescription for prednisone. The first day or so he stated he felt well. However in the last 2 days his symptoms of cough, shortness of breath and fever as well as associated vomiting have worsened. Patient was more short of breath this morning and his room air oxygenation level at home was 87%. Upon arrival into the emergency department this morning, his room air oxygen level was recorded is 84%, he was tachycardic and his temperature was 102.1 F. Patient did take ibuprofen this morning but no other medications. Timing/Duration: day(s) (2) Activities at Onset: rest Severity of Dyspnea-Max: moderate Severity of Dyspnea-Current: moderate Possible Cause: illness exposure Associated Symptoms: cough, chest pain/discomfort, weakness Allergies/Adverse Reactions: Penicillins Allergy (Unknown, Verified 04/17/21 07:23) Home Medications: Bupropion HCl Xl 150 mg [Wellbutrin XL 150 MG] 150 mg PO BID 04/12/21 [History] Acetaminophen 500 mg [Tylenol Extra Strength 500 mg] 1,000 mg PO Q6H PRN PRN 04/13/21 [History] Fexofenadine HCl [Breanna Allergy] 60 mg PO DAILY PRN PRN 04/13/21 [History] Ibuprofen 200 mg [Motrin 200 mg] 400 mg PO Q6H PRN PRN 04/13/21 [History] Hx Tetanus, Diphtheria Vaccination/Date Given: Yes Hx Influenza Vaccination/Date Given: No Hx Pneumococcal Vaccination/Date Given: No Travel Risk - International Travel Have you traveled outside of the country in past 3 weeks: No - Coronavirus Screening Are you exhibiting any of the following symptoms?: Yes Symptoms: Fever, Cough: New Onset, Shortness of Breath, Vomiting/Diarrhea Close contact with a COVID-19 positive Pt in past 14-21 Days: No - Vaccine Status Have you recieved a Covid-19 vaccination: No - Review of Systems Constitutional: Fever, Weakness Eyes: No Symptoms Ears, Nose, & Throat: No Symptoms Respiratory: Cough, Dyspnea Cardiac: Chest Pain Abdominal/Gastrointestinal: Nausea, Vomiting, Appetite Changes, No Abdominal Pain Genitourinary Symptoms: No Symptoms Musculoskeletal: No Symptoms Skin: No Symptoms Neurological: No Symptoms Psychological: No Symptoms Endocrine: No Symptoms Hematologic/Lymphatic: No Symptoms Immunological/Allergic: No Symptoms All Other Systems: Reviewed and Negative - Past Medical History Pertinent Past Medical History: No Musculoskeletal History: Fractures Other Medical History: seasonal allergies, old fx of 5th finger on right hand - Past Surgical History Past Surgical History: No - Social History Smoking Status: Former smoker Exposure to second hand smoke: No Drug Use: none Patient Lives Alone: No - Nursing Vital Signs Nursing Vital Signs: Initial Vital Signs Temperature 102.1 F 04/17/21 07:00 Pulse Rate 124 H 04/17/21 07:00 Respiratory Rate 28 H 04/17/21 07:00 Blood Pressure 151/118 04/17/21 07:00 O2 Sat by Pulse Oximetry 84 L 04/17/21 07:00 Pain Scale Pain Intensity 0 - Physical Exam General Appearance: moderate distress, alert, obese Eye Exam: PERRL/EOMI, eyes nml inspection Ears, Nose, Throat Exam: hearing grossly normal, normal ENT inspection, normal pharynx Neck Exam: normal inspection, non-tender, supple, full range of motion Respiratory Exam: normal breath sounds, chest tenderness, lungs clear, respiratory distress, airway intact Cardiovascular/Chest Exam: tachycardia Abdominal/Gastrointestinal Exam: soft, normal bowel sounds, No tenderness Rectal Exam: not done Extremity Exam: non-tender, normal range of motion, normal inspection Neurologic Exam: alert, oriented x 3, cooperative, floorwalker II-XII nml as tested, normal mood/affect, nml cerebellar function, nml station & gait, sensation nml Skin Exam: normal color, warm, dry Lymphatic Exam: No adenopathy SpO2 Interpretation: hypoxic SpO2: 84 O2 Delivery: Room Air - Course Nursing assessment & vital signs reviewed: Yes EKG Interpreted by Me: RATE, Sinus Tach, NORMAL AXIS, NORMAL INTERVALS, NORMAL QRS, NORMAL ST-T, Other (The only difference on today's EKG when compared to that of 04/13/2021 is that patient's heart rate today is 126 and was 107 on 04/13/2021. There are no acute ischemic changes on either EKG.) Ordered Tests: Active Orders 24 hr Category Date Time Status EKG-ER Only STAT Care 04/17/21 07:18 Active IV Insertion STAT Care 04/17/21 07:13 Active Isolation, Initiate & Maintain STAT Care 04/17/21 07:14 Active Pulse Oximetry (ED) ROUTINE Care 04/17/21 07:15 Active CHEST 1 VIEW (PORTABLE) Stat Exams 04/17/21 07:15 Completed AMYLASE Stat Lab 04/17/21 07:40 Completed BLOOD CULTURE Stat Lab 04/17/21 07:45 Received CBC W DIFF Stat Lab 04/17/21 07:40 Results INFLUENZA A+B VI Stat Lab 04/17/21 07:45 Completed LIPASE Stat Lab 04/17/21 07:40 Completed Lactic Acid Stat Lab 04/17/21 07:13 Completed Manual Differential NC Stat Lab 04/17/21 07:40 Results [place] Screen Stat Lab 04/17/21 Completed Pathologist Review Stat Lab 04/17/21 07:40 Results TROPONIN Q3H Lab 04/17/21 07:40 Completed TROPONIN Q3H Lab 04/17/21 10:15 Ordered TROPONIN Q3H Lab 04/17/21 13:15 Ordered TROPONIN Q3H Lab 04/17/21 16:15 Ordered TROPONIN Q3H Lab 04/17/21 19:15 Ordered UA W/RFX UR CULTURE Stat Lab 04/17/21 08:59 Ordered Respiratory MDI STAT RT 04/17/21 07:16 Completed Respiratory Therapy Assessment DAILY RT 04/17/21 07:46 Active Transfer Order Routine Transfer 04/17/21 Ordered Medication Summary Generic Name Dose Route Start Last Admin Trade Name Freq PRN Reason Stop Dose Admin Sodium Chloride 1,000 mls @ 100 mls/hr 04/17/21 07:15 04/17/21 08:46 Sodium Chloride 0.9% 1000 Ml IV 05/17/21 07:14 100 mls/hr .Q10H ZULMA Administration Discontinued Medications Generic Name Dose Route Start Last Admin Trade Name Freq PRN Reason Stop Dose Admin Hydrocodone Bitart/Acetaminophen 10 ml 04/17/21 07:16 04/17/21 08:48 Hydrocodone-Acetamin 2.5-108/5 Ml Solution PO 04/17/21 07:17 10 ml STAT STA Administration Hydrocodone Bitart/Acetaminophen Confirm 04/17/21 08:38 Hydrocodone-Acetamin 2.5-108/5 Ml Solution Administered 04/17/21 08:39 Dose 10 ml .ROUTE .STK-MED ONE Albuterol Sulfate 4 puff 04/17/21 07:13 04/17/21 07:25 Ventolin Common Canister IH 04/17/21 07:14 4 puff STAT ONE Administration Methylprednisolone Sodium 0 mg 04/17/21 07:17 04/17/21 08:46 Succinate 125 mg/ Sterile IV 04/17/21 07:18 125 mg Water 2 ml STAT ONE Administration Enoxaparin Sodium 40 mg 04/17/21 07:17 04/17/21 08:50 Enoxaparin Sodium SQ 04/17/21 07:18 40 mg STAT ONE Administration Enoxaparin Sodium Confirm 04/17/21 08:38 Enoxaparin Sodium Administered 04/17/21 08:39 Dose 80 mg SQ .STK-MED ONE Methylprednisolone Sodium Succinate Confirm 04/17/21 08:38 Solu-Medrol Administered 04/17/21 08:39 Dose 125 mg .ROUTE .STK-MED ONE Ondansetron HCl Confirm 04/17/21 07:08 Zofran 4 Mg/2 Ml Vial Administered 04/17/21 07:09 Dose 4 mg .ROUTE .STK-MED ONE Ondansetron HCl 4 mg 04/17/21 07:12 04/17/21 07:14 Zofran 4 Mg/2 Ml Vial IV 04/17/21 07:13 4 mg STAT ONE Administration Prochlorperazine Edisylate 10 mg 04/17/21 08:54 04/17/21 08:58 Compazine 10 Mg/2 Ml IV 04/17/21 08:55 10 mg STAT ONE Administration Prochlorperazine Edisylate Confirm 04/17/21 08:58 Compazine 10 Mg/2 Ml Administered 04/17/21 08:59 Dose 10 mg .ROUTE .STK-MED ONE Sterile Water Confirm 04/17/21 08:38 Sterile H2o 10 Ml Administered 04/17/21 08:39 Dose 10 ml IJ .STK-MED ONE Lab/Rad Data: Laboratory Result Diagrams 04/17/21 07:40 Laboratory Results 04/17/21 04/17/21 04/17/21 Range/Units Unknown 07:45 07:45 WBC (4.0-10.5) K/mm3 RBC (4.1-5.6) M/mm3 Hgb (12.5-18.0) gm/dl Hct (42-50) % MCV (78-100) fl MCH (26-32) pg MCHC (32-36) g/dl RDW (11.5-14.0) % Plt Count (150-450) K/mm3 MPV (7.5-11.0) fl Absolute Granulocytes (1.4-6.9) Segmented Neutrophils (36.-66.) % Band Neutrophils (0.0-2.0) % Lymphocytes (Manual) (24-44) % Monocytes (Manual) (0.0-12.0) % Metamyelocytes % Platelet Estimate (NORMAL) RBC Morphology Polychromasia Anisocytosis Smear Path Review Lactic Acid (0.4-2.0) Troponin I (0.000-0.034) ng/mL Amylase (30-110) U/L Lipase (23-300) U/L Monoscreen NEGATIVE (Negative) Influenza Type A Ag NEGATIVE (NEGATIVE) Influenza Type B Ag NEGATIVE (NEGATIVE) Group A Strep Antibody NOT DETECTED (NEGATIVE) 04/17/21 04/17/21 04/17/21 Range/Units 07:40 07:40 07:40 WBC 19.1 H (4.0-10.5) K/mm3 RBC 4.12 (4.1-5.6) M/mm3 Hgb 12.1 L (12.5-18.0) gm/dl Hct 37.8 L (42-50) % MCV 91.7 (78-100) fl MCH 29.4 (26-32) pg MCHC 32.0 (32-36) g/dl RDW 14.7 H (11.5-14.0) % Plt Count 400 (150-450) K/mm3 MPV 9.1 (7.5-11.0) fl Absolute Granulocytes 14.92 H (1.4-6.9) Segmented Neutrophils 53 (36.-66.) % Band Neutrophils 25 H (0.0-2.0) % Lymphocytes (Manual) 6 L (24-44) % Monocytes (Manual) 5 (0.0-12.0) % Metamyelocytes 11 % Platelet Estimate NORMAL (NORMAL) RBC Morphology ABNORMAL Polychromasia 1+ Anisocytosis 1+ Smear Path Review Pending Lactic Acid (0.4-2.0) Troponin I < 0.012 (0.000-0.034) ng/mL Amylase 67 (30-110) U/L Lipase 66 (23-300) U/L Monoscreen (Negative) Influenza Type A Ag (NEGATIVE) Influenza Type B Ag (NEGATIVE) Group A Strep Antibody (NEGATIVE) 04/17/21 Range/Units 07:13 WBC (4.0-10.5) K/mm3 RBC (4.1-5.6) M/mm3 Hgb (12.5-18.0) gm/dl Hct (42-50) % MCV (78-100) fl MCH (26-32) pg MCHC (32-36) g/dl RDW (11.5-14.0) % Plt Count (150-450) K/mm3 MPV (7.5-11.0) fl Absolute Granulocytes (1.4-6.9) Segmented Neutrophils (36.-66.) % Band Neutrophils (0.0-2.0) % Lymphocytes (Manual) (24-44) % Monocytes (Manual) (0.0-12.0) % Metamyelocytes % Platelet Estimate (NORMAL) RBC Morphology Polychromasia Anisocytosis Smear Path Review Lactic Acid 2.1 H (0.4-2.0) Troponin I (0.000-0.034) ng/mL Amylase (30-110) U/L Lipase (23-300) U/L Monoscreen (Negative) Influenza Type A Ag (NEGATIVE) Influenza Type B Ag (NEGATIVE) Group A Strep Antibody (NEGATIVE) - Progress Progress: improved Air Movement: good Progress Note: 04/17/21 09:19 Chest x-ray shows mild worsening of the bilateral airspace disease without consolidation or effusion compared to chest x-ray dated 04/13/2021 Blood Culture(s) Obtained: Yes Antibiotics given: No Discussed with : Other (Brennan) Counseled pt/family regarding: lab results, diagnosis, rad results - Departure Departure Disposition: In-patient Admission Clinical Impression: COVID-19 virus infection, Hypoxia Condition: Fair Critical Care Time: Yes Critical Care Time(excluding separately billable procedures): Critical 30-74 mins Referrals: AIDAN WYATT NP [Primary Care Provider] -
[2021-04-17] MEDS ORDERED: Zofran 4 MG/2 ML VIAL IV ONE (07:12)
[2021-04-17] MEDS ORDERED: VENTOLIN COMMON CANISTER IH ONE (07:13)
[2021-04-17] MEDS ORDERED: Sodium Chloride 0.9% 1000 ML 1,000 ML IV SCH ×2 (07:15→10:49)
[2021-04-17] MEDS ORDERED: HYDROCODONE-ACETAMIN 2.5-108/5 ML SOLUTION PO STA (07:16)
[2021-04-17] MEDS ORDERED: solu-MEDROL 125 MG, Sterile H2O 10 ml 2 ML IV ONE ×2 (07:17)
[2021-04-17] MEDS ORDERED: ENOXAPARIN SODIUM SQ ONE ×2 (07:17→08:38)
[2021-04-17 08:05] LABS: Hematocrit 37.8 % (42-50); Hemoglobin 12.1 gm/dl (12.5-18.0); Mean Cell Volume 91.7 fl (78-100); Mean Corpuscular Hemoglobin 29.4 pg (26-32); Mean Platelet Volume 9.1 fl (7.5-11.0); Platelet Count 400 K/mm3 (150-450); Red Blood Count 4.12 M/mm3 (4.1-5.6); Red Cell Distribution Width 14.7 % (11.5-14.0); White Blood Count 19.1 K/mm3 (4.0-10.5)
[2021-04-17 08:14] LABS: AMYLASE 67 U/L (30-110); LIPASE 66 U/L (23-300)
[2021-04-17 08:28] LABS: ANISOCYTOSIS 1+; BAND 25 % (0.0-2.0); Lymphocytes 6 % (24-44); Metamyelocyte 11 %; Monocyte 5 % (0.0-12.0); Neutrophils 53 % (36.-66.); Platelet Estimate NORMAL (NORMAL); Polychromasia 1+; Total Cells Counted 100
[2021-04-17 08:29] LABS: Absolute Neutrophil Ct (ANC) 14.92 (1.4-6.9)
[2021-04-17] MEDS ORDERED: Sterile H2O 10 ml IJ ONE (08:38)
[2021-04-17] MEDS ORDERED: HYDROCODONE-ACETAMIN 2.5-108/5 ML SOLUTION ONE (08:38)
[2021-04-17] MEDS ORDERED: Sodium Chloride 0.9% 1000 ML 1,000 ML ONE (08:38)
[2021-04-17] MEDS ORDERED: solu-MEDROL ONE (08:38)
[2021-04-17 08:43] LABS: INFLUENZA A NEGATIVE (NEGATIVE); INFLUENZA B NEGATIVE (NEGATIVE)
[2021-04-17] MEDS ORDERED: Compazine 10 MG/2 ML IV ONE (08:54)
[2021-04-17] MEDS ORDERED: Compazine 10 MG/2 ML ONE (08:58)
--- NOTE | 2021-04-17 09:05 | XRAY ---
Indication: Positive Covid 19. Comparison: April 12, 2021. Portable chest demonstrates mild worsening diffuse bilateral airspace disease again without consolidation/large effusion. Remaining heart and bony thorax unremarkable.
[2021-04-17 09:28] LABS: Appearance SLIGHTLY CLOUDY (CLEAR); Bilirubin SMALL (NEGATIVE); Blood NEGATIVE Ery/ul (0-5); Glucose NEGATIVE (NEGATIVE); Ketones NEGATIVE (NEGATIVE); Leukocyte Esterase NEGATIVE (NEGATIVE); Mucus SLIGHT /HPF (NEGATIVE); Nitrite NEGATIVE (NEGATIVE); Protein,Urine Dip 100 (Negative); Specific Gravity 1.036 (1.005-1.025); Urobilinogen 2 mg/dL (0-1)
[2021-04-17] MEDS ORDERED: TYLENOL 325 MG PO PRN (10:49)
[2021-04-17] MEDS ORDERED: Zofran 4 MG/2 ML VIAL IV PRN (10:49)
[2021-04-17] MEDS ORDERED: HYDROCODONE-ACETAMIN 2.5-108/5 ML SOLUTION PO PRN (10:49)
[2021-04-17] MEDS ORDERED: Lomotil PO PRN (11:13)
[2021-04-17] MEDS ORDERED: REMDESIVIR 200 MG in Sodium Chloride 0.9% 250 ML 250 ML IV ONE (12:00)
[2021-04-17] MEDS ORDERED: VENTOLIN COMMON CANISTER IH PRN (15:11)
[2021-04-17] MEDS: OLUMIANT PO SCH (16:22)
[2021-04-17] MEDS ORDERED: Ativan 1 MG PO PRN (16:56)
[2021-04-17] MEDS: VENTOLIN COMMON CANISTER IH SCH (19:50)
[2021-04-17] MEDS: Ativan 2 MG/1 ML VIAL IV PRN (21:10)
[2021-04-17] MEDS: TYLENOL EXTRA STRENGTH 500 MG PO PRN (21:11)
[2021-04-17] MEDS: Wellbutrin SR 150 MG PO SCH (21:11)
[2021-04-17] MEDS: Sodium Chloride 0.9% 1000 ML 1,000 ML IV SCH (21:24)
[2021-04-17] MEDS ORDERED: DECADRON 10MG INJ. IV SCH (22:00)
[2021-04-17] MEDS: HYDROCODONE-CHLORPHEN ER SUSP PO PRN (22:20)
[2021-04-18] MEDS: Ativan 2 MG/1 ML VIAL IV PRN ×3 (05:01→21:00)
[2021-04-18 06:26] LABS: Hematocrit 39.1 % (42-50); Mean Cell Volume 93.8 fl (78-100); Mean Corpuscular Hemoglobin 28.8 pg (26-32); Mean Corpuscular Hgb Concent. 30.7 g/dl (32-36); Mean Platelet Volume 8.9 fl (7.5-11.0); Platelet Count 449 K/mm3 (150-450); Red Blood Count 4.17 M/mm3 (4.1-5.6); Red Cell Distribution Width 14.9 % (11.5-14.0); White Blood Count 22.2 K/mm3 (4.0-10.5)
[2021-04-18 06:40] LABS: ALBUMIN 3.8 g/dL (3.5-5.0); ALKALINE PHOSPHATASE 119 U/L (38-126); ANION GAP 15.4 MEQ/L (5-15); BLOOD UREA NITROGEN 13 mg/dL (9-20); CHLORIDE 100 mmol/L (98-107); Calcium 8.5 mg/dL (8.4-10.2); Carbon Dioxide 28 mmol/L (22-30); Creatinine 1 0.61 mg/dL (0.66-1.25); EST GLOMERULAR FILTRATION RATE > 60.0 ML/MIN; Glucose 166 mg/dL (74-106); Potassium 4.2 mmol/L (3.5-5.1); SGOT/AST 102 U/L (17-59); SGPT/ALT 162 U/L (0-50); SODIUM 139 mmol/L (137-145); Total Protein 7.3 g/dL (6.3-8.2)
[2021-04-18] MEDS: VENTOLIN COMMON CANISTER IH SCH ×4 (07:05→18:45)
[2021-04-18] MEDS: TYLENOL EXTRA STRENGTH 500 MG PO PRN ×2 (07:41→20:58)
[2021-04-18] MEDS: DECADRON 10MG INJ. IV SCH (09:15)
[2021-04-18] MEDS: ENOXAPARIN SODIUM SQ SCH (09:15)
[2021-04-18] MEDS: OLUMIANT PO SCH (09:16)
[2021-04-18] MEDS: Wellbutrin SR 150 MG PO SCH ×2 (09:17→21:00)
[2021-04-18] MEDS ORDERED: ENOXAPARIN SODIUM SQ SCH (10:00)
[2021-04-18 10:23] LABS: BAND 5 % (0.0-2.0); Lymphocytes 11 % (24-44); Monocyte 7 % (0.0-12.0); Neutrophils 77 % (36.-66.); Platelet Estimate NORMAL (NORMAL); Total Cells Counted 100; Toxic Granulation 1+
[2021-04-18] MEDS ORDERED: Zithromax 500 MG/ 250 ML NaCl Premix 500 MG/250 ML IVPB IV ONE (11:00)
[2021-04-18] MEDS: REMDESIVIR 100 MG in Sodium Chloride 0.9% 100 ML BAG 100 ML IV SCH (12:01)
[2021-04-18] MEDS: ROCEPHIN 1 Gm-D5w 50 ml Bag** 1 G/50 ML IVPB IV SCH ×2 (13:15→20:56)
[2021-04-18] MEDS: HYDROCODONE-CHLORPHEN ER SUSP PO PRN (16:12)
[2021-04-18 16:51] LABS: A-aADO2 587; ABG POTASSIUM 4.4 (3.5-5.1); ABG SITE RIGHT RADIAL; ALLEN TEST OK? YES; ARTERIAL BLD GAS O2 SATURATION 96.8 % (95-100); ARTERIAL BLOOD GAS BASE EXCESS 2.9 (-2.0-2.0); ARTERIAL BLOOD GAS FIO2 100 %; ARTERIAL BLOOD GAS PCO2 43 mmHg (35-45); ARTERIAL BLOOD GAS PO2 72 mmHg (75-100); ARTERIAL BLOOD GAS VENT MODE BiPAP; ARTERIAL BLOOD GAS pH 7.42 (7.35-7.45); CARBOXYHEMOGLOBIN 0.9 % THgb (0.0-6.9); HCO3- 27.9 (22-28); HGB O2 SAT 95.1 g/dF (94-100); Methhemoglobin 0.8 % (1.4-1.5)
--- NOTE | 2021-04-18 17:20 | XRAY ---
Indication: Low oxygenation. Positive Covid 19. Multiple contiguous axial images obtained through the chest without contrast. Comparison: None Lungs demonstrates markedly diffuse bilateral consolidating/nonconsolidating airspace disease without effusion. Heart not enlarged. Aorta is normal in course and caliber. Small nonpathologic mediastinal nodes. Bony thorax intact. Limited upper abdomen demonstrates fatty liver and 15 cm splenomegaly. Impression: 1. Diffuse bilateral consolidating/nonconsolidating airspace disease. Commonly reported imaging features of Covid 19 pneumonia are present. Other processes such as influenza pneumonia and organizing pneumonia, as can be seen with drug toxicity and connective tissue disease, can cause a similar imaging pattern. 2. Incidental fatty liver and splenomegaly. Comment: Preliminary interpretation made by [facility]. No critical discrepancy.
[2021-04-18] MEDS ORDERED: Lasix 20 MG/2 ML ONE (17:48)
[2021-04-18] MEDS: Sodium Chloride 0.9% 1000 ML 1,000 ML IV SCH ×2 (17:58→20:58)
[2021-04-18 18:53] LABS: A-aADO2 562; ABG HEMOGLOBIN 13.3; ABG POTASSIUM 4.1 (3.5-5.1); ARTERIAL BLD GAS O2 SATURATION 98.5 % (95-100); ARTERIAL BLD GAS TIDAL VOLUME 550 cc; ARTERIAL BLOOD GAS BASE EXCESS 3.2 (-2.0-2.0); ARTERIAL BLOOD GAS FIO2 100 %; ARTERIAL BLOOD GAS PCO2 42 mmHg (35-45); ARTERIAL BLOOD GAS PO2 99 mmHg (75-100); ARTERIAL BLOOD GAS VENT RATE 16 /MIN; ARTERIAL BLOOD GAS pH 7.43 (7.35-7.45); CARBOXYHEMOGLOBIN 0.6 % THgb (0.0-6.9); HCO3- 27.9 (22-28); HGB O2 SAT 97.2 g/dF (94-100); Methhemoglobin 0.7 % (1.4-1.5)
[2021-04-18 18:54] LABS: ABG SITE RIGHT RADIAL; ALLEN TEST OK? YES; ARTERIAL BLOOD GAS VENT MODE AVAPS
[2021-04-18] MEDS: Nicoderm CQ 21 MG TOP SCH (22:09)
[2021-04-19] MEDS: Ativan 2 MG/1 ML VIAL IV PRN ×3 (00:56→09:28)
[2021-04-19] MEDS: TYLENOL EXTRA STRENGTH 500 MG PO PRN ×2 (00:56→09:23)
[2021-04-19] MEDS: HYDROCODONE-CHLORPHEN ER SUSP PO PRN (03:54)
[2021-04-19] MEDS: VENTOLIN COMMON CANISTER IH SCH (05:00)
[2021-04-19 06:31] LABS: Hematocrit 37.4 % (42-50); Hemoglobin 11.4 gm/dl (12.5-18.0); Mean Cell Volume 94.9 fl (78-100); Mean Corpuscular Hemoglobin 28.9 pg (26-32); Mean Corpuscular Hgb Concent. 30.5 g/dl (32-36); Mean Platelet Volume 8.9 fl (7.5-11.0); Platelet Count 479 K/mm3 (150-450); Red Blood Count 3.94 M/mm3 (4.1-5.6); White Blood Count 21.5 K/mm3 (4.0-10.5)
[2021-04-19 07:05] LABS: ALBUMIN 3.6 g/dL (3.5-5.0); ALKALINE PHOSPHATASE 107 U/L (38-126); ANION GAP 13.7 MEQ/L (5-15); BLOOD UREA NITROGEN 12 mg/dL (9-20); CHLORIDE 98 mmol/L (98-107); Calcium 8.5 mg/dL (8.4-10.2); Carbon Dioxide 30 mmol/L (22-30); Creatinine 1 0.62 mg/dL (0.66-1.25); EST GLOMERULAR FILTRATION RATE > 60.0 ML/MIN; Glucose 131 mg/dL (74-106); Potassium 3.9 mmol/L (3.5-5.1); SGOT/AST 94 U/L (17-59); SGPT/ALT 128 U/L (0-50); SODIUM 138 mmol/L (137-145); Total Protein 6.9 g/dL (6.3-8.2)
--- NOTE | 2021-04-19 07:37 | XRAY ---
Indication: Positive Covid 19. Comparison: April 17, 2021. Portable chest is now underinflated again with diffuse bilateral airspace disease. New left mid to lower lung consolidations versus subsegmental atelectasis. Remaining heart and bony thorax unremarkable.
[2021-04-19] MEDS ORDERED: DUONEB 0.5-3 MG/3 ml Neb IH ONE (09:02)
[2021-04-19 09:09] LABS: BAND 4 % (0.0-2.0); Lymphocytes 14 % (24-44); Monocyte 2 % (0.0-12.0); Neutrophils 80 % (36.-66.); Total Cells Counted 100
[2021-04-19 09:10] LABS: ANISOCYTOSIS 1+; Platelet Estimate NORMAL (NORMAL); Toxic Granulation 2+
[2021-04-19] MEDS: DUONEB 0.5-3 MG/3 ml Neb IH SCH ×3 (09:10→17:30)
[2021-04-19] MEDS: OLUMIANT PO SCH (09:23)
[2021-04-19] MEDS ORDERED: IMODIUM 2 MG PO PRN (09:24)
[2021-04-19] MEDS: ENOXAPARIN SODIUM SQ SCH (09:25)
[2021-04-19] MEDS: DECADRON 10MG INJ. IV SCH (09:26)
[2021-04-19] MEDS: Wellbutrin SR 150 MG PO SCH (09:28)
[2021-04-19] MEDS: ROCEPHIN 1 Gm-D5w 50 ml Bag** 1 G/50 ML IVPB IV SCH (09:29)
[2021-04-19] MEDS ORDERED: Ativan 20 MG/10 ML MDV*** 40 MG in D5w 100ML Mini Bag 100 ML 80 ML IV PRN (09:49)
[2021-04-19] MEDS ORDERED: Nimbex 20MG/10 Ml Vial (HIGH RISK MED) IV ONE ×2 (10:00→10:52)
[2021-04-19] MEDS ORDERED: SODIUM CHLORIDE 0.9% IV SCH (10:00)
[2021-04-19] MEDS ORDERED: Ativan 2 MG/1 ML VIAL IV ONE (10:00)
[2021-04-19] MEDS ORDERED: SUBLIMAZE 100 MCG/2 ML IV ONE (10:00)
[2021-04-19] MEDS ORDERED: VERSED 5 MG/5 ML IV ONE (10:00)
[2021-04-19] MEDS ORDERED: ZITHROMAX IV SCH (10:00)
[2021-04-19] MEDS ORDERED: Quelicin Fliptop 200 MG/10 ML IV ONE (10:00)
[2021-04-19] MEDS: SUBLIMAZE 1000 Mcg/ 20 Ml*** 1,500 MCG in Sodium Chloride 0.9% 150 ML 120 ML IV SCH (10:33)
[2021-04-19] MEDS ORDERED: BUMEX 1 MG IV ONE (10:46)
[2021-04-19] MEDS: Nimbex 200MG/20 Ml MDV (HIGH RISK MED)** 200 MG in Dextrose 5%/Water IV Soln. 250 ML 18... IV SCH ×2 (11:27→16:38)
[2021-04-19 12:01] LABS: A-aADO2 574; ABG HEMOGLOBIN 12.7; ABG POTASSIUM 4.1 (3.5-5.1); ARTERIAL BLD GAS O2 SATURATION 89.1 % (95-100); ARTERIAL BLD GAS TIDAL VOLUME 600 cc; ARTERIAL BLOOD GAS FIO2 100 %; ARTERIAL BLOOD GAS PO2 57 mmHg (75-100); ARTERIAL BLOOD GAS VENT MODE A/C; CARBOXYHEMOGLOBIN 1.2 % THgb (0.0-6.9); HCO3- 32.5 (22-28); HGB O2 SAT 87.3 g/dF (94-100); Methhemoglobin 0.8 % (1.4-1.5)
[2021-04-19 12:02] LABS: ARTERIAL BLOOD GAS PCO2 66 mmHg (35-45)
[2021-04-19] MEDS: REMDESIVIR 100 MG in Sodium Chloride 0.9% 100 ML BAG 100 ML IV SCH (12:10)
[2021-04-19] MEDS: Zithromax 500 MG/ 250 ML NaCl Premix 500 MG/250 ML IVPB IV SCH (13:43)
[2021-04-19] MEDS ORDERED: Lasix 20 MG/2 ML IV ONE (17:46)
[2021-04-19 17:51] LABS: A-aADO2 546; ABG HEMOGLOBIN 11.8; ABG POTASSIUM 4.5 (3.5-5.1); ARTERIAL BLD GAS O2 SATURATION 98.1 % (95-100); ARTERIAL BLD GAS TIDAL VOLUME 600 cc; ARTERIAL BLOOD GAS BASE EXCESS 6.1 (-2.0-2.0); ARTERIAL BLOOD GAS FIO2 100 %; ARTERIAL BLOOD GAS PO2 88 mmHg (75-100); ARTERIAL BLOOD GAS VENT MODE A/C; ARTERIAL BLOOD GAS pH 7.34 (7.35-7.45); CARBOXYHEMOGLOBIN 0.8 % THgb (0.0-6.9); HGB O2 SAT 96.7 g/dF (94-100); Methhemoglobin 0.6 % (1.4-1.5)
[2021-04-19 17:52] LABS: ARTERIAL BLOOD GAS PCO2 63 mmHg (35-45)
--- NOTE | 2021-04-19 17:58 | XRAY ---
Indication: Endotracheal tube and NG tube placement. Comparison: Taken earlier in the day. Portable chest demonstrates new endotracheal tube tip 1 cm above galdino and new NG tube coiled in the neck. Lungs again underinflated with worsening diffuse bilateral airspace disease and new left lower lobe consolidation/effusion obscuring cardiac silhouette. Comment: Preliminary interpretation made by [facility] who does not report NG tube coiled in the neck. I gave telephone report to the patient's nurse, Shyla at 1747 hrs. on April 19, 2021.
[2021-04-19 18:02] LABS: ABG SITE RIGHT RADIAL
[2021-04-19] MEDS: Nicoderm CQ 21 MG TOP SCH (21:08)
[2021-04-19] MEDS: DUONEB 0.5-3 MG/3 ml Neb IH PRN (22:00)
[2021-04-20] MEDS: Nimbex 200MG/20 Ml MDV (HIGH RISK MED)** 200 MG in Dextrose 5%/Water IV Soln. 250 ML 18... IV SCH ×4 (00:08→22:30)
[2021-04-20] MEDS: Ativan 20 MG/10 ML MDV*** 40 MG in D5w 100ML Mini Bag 100 ML 80 ML IV PRN ×3 (01:00→22:30)
[2021-04-20] MEDS: DUONEB 0.5-3 MG/3 ml Neb IH PRN (02:10)
[2021-04-20] MEDS: DUONEB 0.5-3 MG/3 ml Neb IH SCH ×4 (05:00→19:09)
[2021-04-20 05:36] LABS: A-aADO2 497; ABG HEMOGLOBIN 11.1; ABG POTASSIUM 4.4 (3.5-5.1); ABG SITE RIGHT RADIAL; ARTERIAL BLD GAS O2 SATURATION 98.5 % (95-100); ARTERIAL BLD GAS TIDAL VOLUME 600 cc; ARTERIAL BLOOD GAS BASE EXCESS 7.5 (-2.0-2.0); ARTERIAL BLOOD GAS FIO2 100 %; ARTERIAL BLOOD GAS PCO2 47 mmHg (35-45); ARTERIAL BLOOD GAS PO2 157 mmHg (75-100); ARTERIAL BLOOD GAS VENT MODE A/C; ARTERIAL BLOOD GAS pH 7.45 (7.35-7.45); CARBOXYHEMOGLOBIN 4.1 % THgb (0.0-6.9); HCO3- 32.7 (22-28); HGB O2 SAT 93.6 g/dF (94-100); Methhemoglobin 0.9 % (1.4-1.5)
[2021-04-20 05:41] LABS: Hematocrit 35.9 % (42-50); Hemoglobin 10.8 gm/dl (12.5-18.0); Mean Corpuscular Hemoglobin 29.2 pg (26-32); Mean Corpuscular Hgb Concent. 30.1 g/dl (32-36); Mean Platelet Volume 8.8 fl (7.5-11.0); Platelet Count 499 K/mm3 (150-450); Red Cell Distribution Width 15.2 % (11.5-14.0); White Blood Count 21.6 K/mm3 (4.0-10.5)
[2021-04-20 05:55] LABS: ALBUMIN 3.5 g/dL (3.5-5.0); ALKALINE PHOSPHATASE 110 U/L (38-126); ANION GAP 12.2 MEQ/L (5-15); BLOOD UREA NITROGEN 12 mg/dL (9-20); CHLORIDE 97 mmol/L (98-107); Calcium 8.4 mg/dL (8.4-10.2); Carbon Dioxide 33 mmol/L (22-30); Creatinine 1 0.58 mg/dL (0.66-1.25); EST GLOMERULAR FILTRATION RATE > 60.0 ML/MIN; Glucose 146 mg/dL (74-106); Potassium 4.4 mmol/L (3.5-5.1); SGOT/AST 65 U/L (17-59); SGPT/ALT 119 U/L (0-50); SODIUM 137 mmol/L (137-145)
[2021-04-20] MEDS: Sodium Chloride 0.9% 1000 ML 1,000 ML IV SCH (06:08)
--- NOTE | 2021-04-20 08:58 | XRAY ---
Indication: NG tube. Comparison: One day earlier. Portable chest demonstrates new NG tube tip in stomach with endotracheal tube tip now 4 cm above galdino. Lungs are better inflated moderate improving left base consolidation/effusion and grossly stable diffuse bilateral airspace disease. Heart not enlarged.
[2021-04-20] MEDS: ENOXAPARIN SODIUM SQ SCH (09:26)
[2021-04-20] MEDS: DECADRON 10MG INJ. IV SCH (09:26)
[2021-04-20] MEDS: SUBLIMAZE 1000 Mcg/ 20 Ml*** 1,500 MCG in Sodium Chloride 0.9% 150 ML 120 ML IV SCH (09:27)
--- NOTE | 2021-04-20 10:20 | HP ---
CHIEF COMPLAINT: Shortness of breath. HISTORY OF PRESENT ILLNESS: This is a 25 year-old white male who has been reasonably healthy except for occasional asthma mostly as a young child. He was diagnosed with COVID about a week ago. He was treated with some prednisone and got better and was sent home. However, he got worse overnight. He had been taking some prednisone. His O2 saturation was 87% at home. On arrival to the emergency room this morning, his O2 saturation is 84% on room air, temperature 101F. VACCINATIONS: No recent DPT. No recent flu or COVID vaccine. MEDICATIONS: Tylenol, Breanna, ibuprofen, Proventil inhaler. ALLERGIES: PENICILLIN. PAST MEDICAL HISTORY: Fractured fingers. Seasonal allergies. PAST SURGICAL HISTORY: None. REVIEW OF SYSTEMS: CONSTITUTIONAL: Fever, weak all over, hard to get up. HEENT: Headache. RESPIRATORY: Cough, short of breath. CVS: Just aches all over. ABDOMEN: Nausea, vomiting, decreased appetite. MUSCULOSKELETAL: Achy, usually no problems. NEUROLOGIC: No symptoms. SOCIAL HISTORY: The patient is not , lives with his mother. He quit smoking a year ago. PHYSICAL EXAMINATION: The patient is alert, orientated and joking this afternoon, feeling much better he stated. He is a large man VITAL SIGNS: Temperature was 102F, pulse 120, respirations 28, blood pressure 150/118. O2 saturation 84%. HEENT: Pupils equal and reactive to light. NECK: Supple without adenopathy. CHEST: Clear. CVS: Tender chest wall, tachycardic. No murmurs or gallops. ABDOMEN: Soft. No masses or organomegaly. EXTREMITIES: Moves everything normal. [employer] normal. He has trouble getting out of bed I think due to his weight and weakness otherwise he is normal. IMPRESSION: The patient has COVID pneumonia seen on chest x-ray and he is also hypoxic requiring 4 to 5 liters nasal cannula to keep him above 90%. He also has a fever with slightly elevated white count which is unusual COVID. PLAN: We put him on antibodies, Decadron, Remdesivir, Lovenox, Zofran PRN, O2 at 5 liters. I have asked him to try to lay on his side, will repeat the CBC in the morning.
[2021-04-20] MEDS: ROCEPHIN 1 Gm-D5w 50 ml Bag** 1 G/50 ML IVPB IV SCH (10:49)
[2021-04-20] MEDS: OLUMIANT PO SCH (11:06)
[2021-04-20 11:19] LABS: ANISOCYTOSIS 1+; BAND 3 % (0.0-2.0); Lymphocytes 13 % (24-44); Monocyte 6 % (0.0-12.0); Neutrophils 78 % (36.-66.); Platelet Estimate INCREASED (NORMAL); Total Cells Counted 100; Toxic Granulation 1+
[2021-04-20] MEDS: REMDESIVIR 100 MG in Sodium Chloride 0.9% 100 ML BAG 100 ML IV SCH (11:41)
[2021-04-20] MEDS: Zithromax 500 MG/ 250 ML NaCl Premix 500 MG/250 ML IVPB IV SCH (13:02)
--- NOTE | 2021-04-20 13:42 | CONS ---
CONSULT DATE: 04/18/2021 HISTORY: Nasim Tabares is a 25 year-old male who has been hospitalized at [facility] with complaints of shortness of breath. The patient apparently was here recently and was discharged home with good oxygenation after a couple of days of stay. He however started experiencing progressive shortness of breath and presented to the emergency room on 04/17/2021 at 0700 hours. He has since been admitted to the COVID unit. The patient has been somewhat difficult to deal with as he has been declining use of noninvasive ventilation as well as high flow. He currently is on oxygen via nonrebreather mask. I was contacted this morning requesting consultation and I advised a CT chest which I have personally reviewed. The patient has significant involvement of bilateral parenchyma with areas of large atelectasis involving left upper lobe and left lower lobe. There is barely 10% normal looking lung parenchyma on CT performed this morning. At the time of my evaluation, the patient is still able to carry out a conversation. He likes nonrebreather mask better and will for the time being leave him on the same. He is able to maintain oxygen saturation in the low 90's on the same. PAST MEDICAL HISTORY: The patient denies prior history of any pulmonary problems. He also has been reasonably good health and other than Wellbutrin XL, Tylenol along with Breanna and Motrin has not been taking any other medications at home. PAST SURGICAL HISTORY: No recent surgery. PERSONAL AND SOCIAL HISTORY: He is a nonsmoker. He works at the [employer]. MEDICATIONS: Home and current medications are reviewed. ALLERGIES: PENICILLIN (HIVES). PHYSICAL EXAMINATION: This is a young male who appears tired, mildly tachypneic but able to carry out a conversation. He actually looks better than his numbers and radiologic findings. HEENT: Normocephalic. Nonrebreather mask is in place. Small oropharynx. NECK: Short. CVS: First and second heart sounds are normal, regular, rhythmic. RESPIRATORY: Shows diminished breath sounds, crackles are heard at lung bases. ABDOMEN: Obese. EXTREMITIES: No significant edema is noted. LABORATORY DATA AND TESTS: I have personally reviewed all of his labs, x-rays and CT scan findings. ASSESSMENT: This is a 25 year old male admitted with: 1) Acute severe hypoxic respiratory failure. 2) COVID-19 infection with viral pneumonia. 3) Abnormal liver function test. 4) Morbid obesity. RECOMMENDATIONS: I have reviewed his medications. The patient is being treated with Remdesivir although it appears that he is past the two week lyly now from initiation of symptoms. He is also continued on oral baricitinib along with anticoagulation for deep vein thrombosis prophylaxis and other supportive care. I discussed with the patient continuation of noninvasive mask at some point if he appears to decompensate he would benefit from BiPAP/AVAPS most as well. We are attempting to avoid intubation which may likely be coming in the next few days if clinical improvement is not noted. Should he get intubated I would certainly attempt my best to transfer him to [facility] to care for him at that facility. In the meantime I am available as needed to assist in his care. Thank you for allowing me to participate in the care of your patient.
--- NOTE | 2021-04-20 15:14 | PROG NOTE ---
CONSULT DATE: 04/19/2021 Events noted. Chart reviewed. HISTORY: The patient got progressively more hypoxic and weak leading to intubation this morning. An attempt was made to transfer him however no beds were available anywhere in near vicinity. The patient since then was treated with one dose of Bumex with improvement in oxygen saturation. Currently, he remains at 100% FIO2 but his saturations have improved to 94%. He is sedated chemically paralyzed and appears comfortable. PHYSICAL EXAMINATION: Vital signs noted. Heart rate 100, blood pressure 132/70. Saturating 94%. HEENT: Normocephalic. Pupils are reactive. ET and NG are in place. NECK: Short. CVS: First and second heart sounds are normal, regular, rhythmic. RESPIRATORY: Shows diminished breath sounds. ABDOMEN: Obese. EXTREMITIES: Chronic leg edema is noted. LABORATORY DATA AND TESTS: White count 21.5, hemoglobin 11.4, hematocrit 37, PLT 479,000. Cultures are negative. Chest x-ray noted. ASSESSMENT: This is a 25-year-old male admitted with: 1) Acute severe hypoxic respiratory failure. 2) COVID-19 infection with viral pneumonia. 3) Morbid obesity. RECOMMENDATIONS: 1) The patient has been intubated. 2) I attempted pressure controlled ventilation however the patient's tidal volume dropped significantly with inspiratory pressure of even 30 cm of water. Due to which I have opted to keep him on assist control mode and PEEP was increased to 50 cm of water. 3) Will keep patient sedated. Clinical correlation. Improve ventilator synchrony and prevent barotrauma. 4) I agree with continuation of other supportive care including antibiotics, steroids and antiviral therapy, along with deep vein thrombosis prophylaxis. The patient's condition remains critical. His prognosis appears guarded. Dr. Paniagua has communicated intubation events with family. Will continue to follow.
[2021-04-20] MEDS: CHLORHEXIDINE GLUCONATE MM SCH (21:59)
[2021-04-20] MEDS: Lubrifresh P.M. 3.5 gm Ointment OP SCH (21:59)
[2021-04-21] MEDS: Sodium Chloride 0.9% 1000 ML 1,000 ML IV SCH (05:14)
[2021-04-21 05:39] LABS: A-aADO2 382; ABG HEMOGLOBIN 11.1; ABG POTASSIUM 4.4 (3.5-5.1); ARTERIAL BLD GAS O2 SATURATION 98.6 % (95-100); ARTERIAL BLD GAS TIDAL VOLUME 600 cc; ARTERIAL BLOOD GAS BASE EXCESS 9.2 (-2.0-2.0); ARTERIAL BLOOD GAS FIO2 80 %; ARTERIAL BLOOD GAS PCO2 43 mmHg (35-45); ARTERIAL BLOOD GAS PO2 135 mmHg (75-100); ARTERIAL BLOOD GAS VENT MODE A/C; CARBOXYHEMOGLOBIN 4.8 % THgb (0.0-6.9); HCO3- 33.5 (22-28); HGB O2 SAT 92.9 g/dF (94-100); Methhemoglobin 1.1 % (1.4-1.5)
[2021-04-21 05:40] LABS: ABG SITE RIGHT BRACHIAL; ARTERIAL BLOOD GAS VENT RATE 16 /MIN
[2021-04-21 05:49] LABS: Absolute Neutrophil Ct (ANC) 23.89 (1.4-6.9); BASOPHIL % 0.1 % (0.0-0.4); Basophil (Absolute #) 0.04 (0-0.4); Eosinophil (Absolute #) 0.01 (0-0.5); Hematocrit 36.9 % (42-50); Lymphocyte (Absolute #) 1.25 (1.0-4.6); Lymphocytes % 4.6 % (24.0-44.0); Mean Cell Volume 97.9 fl (78-100); Mean Corpuscular Hemoglobin 29.2 pg (26-32); Mean Corpuscular Hgb Concent. 29.8 g/dl (32-36); Mean Platelet Volume 8.6 fl (7.5-11.0); Monocyte (Absolute #) 1.97 (0.0-1.3); Monocytes % 7.3 % (0.0-12.0); Platelet Count 507 K/mm3 (150-450); Red Blood Count 3.77 M/mm3 (4.1-5.6)
[2021-04-21 05:56] LABS: White Blood Count 27.2 K/mm3 (4.0-10.5)
[2021-04-21] MEDS: Nimbex 200MG/20 Ml MDV (HIGH RISK MED)** 200 MG in Dextrose 5%/Water IV Soln. 250 ML 18... IV SCH ×4 (06:07→20:16)
[2021-04-21 06:11] LABS: ALBUMIN 3.4 g/dL (3.5-5.0); ALKALINE PHOSPHATASE 111 U/L (38-126); ANION GAP 10.3 MEQ/L (5-15); BLOOD UREA NITROGEN 13 mg/dL (9-20); CHLORIDE 96 mmol/L (98-107); Calcium 8.7 mg/dL (8.4-10.2); Carbon Dioxide 35 mmol/L (22-30); Creatinine 1 0.61 mg/dL (0.66-1.25); EST GLOMERULAR FILTRATION RATE > 60.0 ML/MIN; Glucose 129 mg/dL (74-106); Potassium 4.3 mmol/L (3.5-5.1); SGOT/AST 58 U/L (17-59); SGPT/ALT 102 U/L (0-50); SODIUM 137 mmol/L (137-145); Total Protein 6.8 g/dL (6.3-8.2)
[2021-04-21] MEDS: SUBLIMAZE 1000 Mcg/ 20 Ml*** 1,500 MCG in Sodium Chloride 0.9% 150 ML 120 ML IV SCH ×4 (06:31→21:55)
[2021-04-21 07:14] LABS: Lymphocytes 10 % (24-44); Metamyelocyte 8 %; Monocyte 7 % (0.0-12.0); Myelocyte 1 %; Neutrophils 74 % (36.-66.); Total Cells Counted 100
[2021-04-21] MEDS: DUONEB 0.5-3 MG/3 ml Neb IH SCH ×4 (07:15→21:56)
[2021-04-21 07:37] LABS: Platelet Estimate INCREASED (NORMAL); Toxic Granulation 1+
--- NOTE | 2021-04-21 08:38 | XRAY ---
Indication: Positive Covid 19. Comparison: April 20, 2021. Portable chest mildly underinflated again with endotracheal tube tip now 1 cm above galdino and NG tube tip in stomach. Lungs again demonstrate diffuse bilateral airspace disease with mild worsening left lower lung consolidation/effusion. Heart not enlarged.
[2021-04-21] MEDS: OLUMIANT PO SCH (09:01)
[2021-04-21] MEDS: DECADRON 10MG INJ. IV SCH (09:01)
[2021-04-21] MEDS: ENOXAPARIN SODIUM SQ SCH (09:02)
[2021-04-21] MEDS: Lubrifresh P.M. 3.5 gm Ointment OP SCH ×2 (09:04→21:57)
[2021-04-21] MEDS: CHLORHEXIDINE GLUCONATE MM SCH ×2 (09:04→21:57)
[2021-04-21] MEDS: ROCEPHIN 1 Gm-D5w 50 ml Bag** 1 G/50 ML IVPB IV SCH ×2 (10:01→10:17)
[2021-04-21] MEDS: REMDESIVIR 100 MG in Sodium Chloride 0.9% 100 ML BAG 100 ML IV SCH (10:26)
[2021-04-21] MEDS ORDERED: PHARMACY DOSING REQUIRED: VANCOMYCIN IV STA (10:45)
[2021-04-21] MEDS ORDERED: VANCOMYCIN 1.25 GM/250 ML BAG 1.25 GM/250 ML PIGGYBACK IV SCH (12:00)
[2021-04-21] MEDS ORDERED: Levofloxacin 500MG/100ML D5W 500 MG/100 ML BAG IV SCH (14:00)
[2021-04-21] MEDS: Zosyn 3.375 GM Vial 3.375 GM in Sodium Chloride 100ML MINI-BAG PLUS 100 ML IV SCH ×2 (14:11→22:24)
[2021-04-21] MEDS: Ativan 20 MG/10 ML MDV*** 40 MG in D5w 100ML Mini Bag 100 ML 80 ML IV PRN (17:57)
[2021-04-21] MEDS: VANCOMYCIN 2 GRAM/400 ML BAG 2 GM/400 ML PIGGYBACK IV SCH (20:16)
[2021-04-22] MEDS: SUBLIMAZE 1000 Mcg/ 20 Ml*** 1,500 MCG in Sodium Chloride 0.9% 150 ML 120 ML IV SCH ×5 (02:31→17:32)
[2021-04-22] MEDS: Sodium Chloride 0.9% 1000 ML 1,000 ML IV SCH (02:32)
[2021-04-22 02:37] LABS: A-aADO2 538; ABG HEMOGLOBIN 11.3; ABG POTASSIUM 4.2 (3.5-5.1); ABG SITE LEFT RADIAL; ARTERIAL BLD GAS O2 SATURATION 99.1 % (95-100); ARTERIAL BLD GAS TIDAL VOLUME 600 cc; ARTERIAL BLOOD GAS BASE EXCESS 9.9 (-2.0-2.0); ARTERIAL BLOOD GAS FIO2 100 %; ARTERIAL BLOOD GAS PCO2 44 mmHg (35-45); ARTERIAL BLOOD GAS PO2 120 mmHg (75-100); ARTERIAL BLOOD GAS VENT MODE A/C; CARBOXYHEMOGLOBIN 5.1 % THgb (0.0-6.9); HCO3- 34.3 (22-28); HGB O2 SAT 93.3 g/dF (94-100); Methhemoglobin 0.9 % (1.4-1.5)
[2021-04-22] MEDS: Nimbex 200MG/20 Ml MDV (HIGH RISK MED)** 200 MG in Dextrose 5%/Water IV Soln. 250 ML 18... IV SCH ×3 (03:25→17:31)
[2021-04-22] MEDS ORDERED: CHLORASEPTIC SPRAY 180 ML ONE (04:20)
[2021-04-22] MEDS: VANCOMYCIN 2 GRAM/400 ML BAG 2 GM/400 ML PIGGYBACK IV SCH ×3 (04:34→21:22)
[2021-04-22] MEDS: TYLENOL EXTRA STRENGTH 500 MG PO PRN (04:34)
[2021-04-22 05:13] LABS: A-aADO2 570; ABG HEMOGLOBIN 20.2; ABG POTASSIUM 3.9 (3.5-5.1); ABG SITE RIGHT RADIAL; ARTERIAL BLD GAS TIDAL VOLUME 600 cc; ARTERIAL BLOOD GAS BASE EXCESS 9.7 (-2.0-2.0); ARTERIAL BLOOD GAS FIO2 100 %; ARTERIAL BLOOD GAS PCO2 56 mmHg (35-45); ARTERIAL BLOOD GAS PO2 73 mmHg (75-100); ARTERIAL BLOOD GAS VENT MODE A/C; ARTERIAL BLOOD GAS pH 7.42 (7.35-7.45); CARBOXYHEMOGLOBIN 1.2 % THgb (0.0-6.9); HCO3- 36.3 (22-28); Methhemoglobin 0.9 % (1.4-1.5)
[2021-04-22 05:23] LABS: Hematocrit 34.9 % (42-50); Hemoglobin 10.6 gm/dl (12.5-18.0); Mean Cell Volume 97.5 fl (78-100); Mean Corpuscular Hemoglobin 29.6 pg (26-32); Mean Corpuscular Hgb Concent. 30.4 g/dl (32-36); Platelet Count 479 K/mm3 (150-450); Red Blood Count 3.58 M/mm3 (4.1-5.6); Red Cell Distribution Width 14.9 % (11.5-14.0)
[2021-04-22 05:30] LABS: White Blood Count 27.4 K/mm3 (4.0-10.5)
[2021-04-22 06:00] LABS: ALKALINE PHOSPHATASE 104 U/L (38-126); ANION GAP 13.5 MEQ/L (5-15); BLOOD UREA NITROGEN 16 mg/dL (9-20); CHLORIDE 96 mmol/L (98-107); Calcium 8.6 mg/dL (8.4-10.2); Carbon Dioxide 31 mmol/L (22-30); Creatinine 1 0.55 mg/dL (0.66-1.25); EST GLOMERULAR FILTRATION RATE > 60.0 ML/MIN; Glucose 122 mg/dL (74-106); Potassium 4.6 mmol/L (3.5-5.1); SGOT/AST 70 U/L (17-59); SGPT/ALT 106 U/L (0-50); SODIUM 136 mmol/L (137-145)
[2021-04-22] MEDS: Zosyn 3.375 GM Vial 3.375 GM in Sodium Chloride 100ML MINI-BAG PLUS 100 ML IV SCH ×3 (06:38→22:45)
[2021-04-22] MEDS: DUONEB 0.5-3 MG/3 ml Neb IH PRN (07:30)
[2021-04-22] MEDS: DUONEB 0.5-3 MG/3 ml Neb IH SCH ×4 (07:30→18:55)
--- NOTE | 2021-04-22 08:54 | XRAY ---
Exam: AP upright portable chest film from 04/22/2021 Comparison: AP supine portable chest film from 04/21/2021. Indication: On ventilator; positive Covid-19; has an endotracheal tube and NG tube in place. Findings: Endotracheal tube is seen with the tip about 2 cm above the galdino in satisfactory position. NG tube is seen with the tip pointing laterally within the projection of the gastric fundus. It should be noted that the Marker within the distal aspect of the NG tube is at or just above the gastroesophageal junction. Consider advancing the NG tube several centimeters. The lung calzada again appear mildly hypoinflated. Heart size is within normal limits for this AP portable technique. Mild diffuse bilateral groundglass opacifications are again seen. However, there is now a new small focal dense consolidation within the inferior portion of the right upper lobe measuring about 7 cm in width and 2.5 cm in height. Prior relatively dense consolidation/effusion within the lower two thirds of left lung field demonstrates mild improvement. There is no pneumothorax. External tubing overlies the patient's right lung apex. EKG lines are seen in place. Impression: 1. Underinflated chest with persistence of mild diffuse bilateral groundglass infiltrates. However, there is a new small dense consolidation seen within the inferior aspect of the right upper lobe. Also, prior moderate consolidation/effusion occupying lower two thirds of left lung, although still abnormal, appears improved. 2. Endotracheal tube and NG tube in place, as described above. I would consider advancing the NG tube several centimeters.
[2021-04-22] MEDS: Ativan 20 MG/10 ML MDV*** 40 MG in D5w 100ML Mini Bag 100 ML 80 ML IV PRN ×3 (09:07→23:08)
[2021-04-22] MEDS: OLUMIANT PO SCH (09:07)
[2021-04-22] MEDS: CHLORHEXIDINE GLUCONATE MM SCH ×2 (09:08→22:45)
[2021-04-22] MEDS: Lubrifresh P.M. 3.5 gm Ointment OP SCH ×2 (09:08→21:21)
[2021-04-22] MEDS: DECADRON 10MG INJ. IV SCH (09:08)
[2021-04-22] MEDS ORDERED: ENOXAPARIN SODIUM SQ SCH (10:00)
[2021-04-22] MEDS: ENOXAPARIN SODIUM SQ SCH ×2 (10:03→23:07)
[2021-04-22] MEDS ORDERED: Sodium Chloride 3 ML UD NEBULES IH ONE (10:06)
[2021-04-22 16:42] LABS: Appearance TURBID (CLEAR); Bilirubin NEGATIVE (NEGATIVE); Blood NEGATIVE Ery/ul (0-5); Glucose NEGATIVE (NEGATIVE); Ketones NEGATIVE (NEGATIVE); Leukocyte Esterase NEGATIVE (NEGATIVE); Nitrite NEGATIVE (NEGATIVE); Protein,Urine Dip NEGATIVE (Negative); Specific Gravity 1.035 (1.005-1.025); Urobilinogen NEGATIVE mg/dL (0-1)
[2021-04-23] MEDS: Sodium Chloride 0.9% 1000 ML 1,000 ML IV SCH ×2 (00:55→09:23)
[2021-04-23] MEDS: Nimbex 200MG/20 Ml MDV (HIGH RISK MED)** 200 MG in Dextrose 5%/Water IV Soln. 250 ML 18... IV SCH ×3 (03:23→15:36)
[2021-04-23] MEDS ORDERED: TROUGH DRUG LEVELS IJ ONE (03:30)
[2021-04-23] MEDS ORDERED: FENTANYL 500 MCG/10 ML VIAL IV ONE (04:27)
[2021-04-23] MEDS ORDERED: Sodium Chloride 0.9% 150 ML 150 ML IV ONE (04:28)
[2021-04-23] MEDS: SUBLIMAZE 1000 Mcg/ 20 Ml*** 1,500 MCG in Sodium Chloride 0.9% 150 ML 120 ML IV SCH ×2 (04:39→11:10)
[2021-04-23 04:45] LABS: BLOOD UREA NITROGEN 18 mg/dL (9-20); CHLORIDE 96 mmol/L (98-107); Calcium 8.6 mg/dL (8.4-10.2); Carbon Dioxide 33 mmol/L (22-30); Creatinine 1 0.64 mg/dL (0.66-1.25); EST GLOMERULAR FILTRATION RATE > 60.0 ML/MIN; Glucose 135 mg/dL (74-106); Potassium 4.4 mmol/L (3.5-5.1); SODIUM 139 mmol/L (137-145)
[2021-04-23 05:21] LABS: A-aADO2 551; ABG HEMOGLOBIN 10.9; ABG POTASSIUM 4.2 (3.5-5.1); ABG SITE RIGHT RADIAL; ARTERIAL BLD GAS O2 SATURATION 98.6 % (95-100); ARTERIAL BLD GAS TIDAL VOLUME 600 cc; ARTERIAL BLOOD GAS BASE EXCESS 8.8 (-2.0-2.0); ARTERIAL BLOOD GAS FIO2 100 %; ARTERIAL BLOOD GAS PCO2 48 mmHg (35-45); ARTERIAL BLOOD GAS PO2 102 mmHg (75-100); ARTERIAL BLOOD GAS VENT MODE A/C; ARTERIAL BLOOD GAS pH 7.46 (7.35-7.45); CARBOXYHEMOGLOBIN 3.1 % THgb (0.0-6.9); HCO3- 34.1 (22-28); HGB O2 SAT 94.6 g/dF (94-100)
[2021-04-23] MEDS: VANCOMYCIN 2 GRAM/400 ML BAG 2 GM/400 ML PIGGYBACK IV SCH ×2 (05:21→12:51)
[2021-04-23 05:39] LABS: Hematocrit 34.1 % (42-50); Hemoglobin 10.3 gm/dl (12.5-18.0); Mean Cell Volume 97.2 fl (78-100); Mean Corpuscular Hemoglobin 29.3 pg (26-32); Mean Corpuscular Hgb Concent. 30.2 g/dl (32-36); Mean Platelet Volume 9.4 fl (7.5-11.0); Platelet Count 469 K/mm3 (150-450); Red Blood Count 3.51 M/mm3 (4.1-5.6); Red Cell Distribution Width 14.8 % (11.5-14.0)
[2021-04-23 05:55] LABS: White Blood Count 25.6 K/mm3 (4.0-10.5)
[2021-04-23 06:40] LABS: BAND 4 % (0.0-2.0); Lymphocytes 14 % (24-44); Monocyte 5 % (0.0-12.0); Neutrophils 77 % (36.-66.); Total Cells Counted 100
[2021-04-23 06:41] LABS: Platelet Estimate NORMAL (NORMAL)
[2021-04-23] MEDS: DUONEB 0.5-3 MG/3 ml Neb IH SCH ×3 (06:55→15:32)
[2021-04-23] MEDS: Ativan 20 MG/10 ML MDV*** 40 MG in D5w 100ML Mini Bag 100 ML 80 ML IV PRN ×2 (07:20→14:46)
[2021-04-23] MEDS ORDERED: FEVERALL 650 MG PR PRN (07:55)
[2021-04-23] MEDS: Zosyn 3.375 GM Vial 3.375 GM in Sodium Chloride 100ML MINI-BAG PLUS 100 ML IV SCH (07:58)
[2021-04-23] MEDS ORDERED: FEVERALL 650 MG ONE (07:59)
--- NOTE | 2021-04-23 08:30 | XRAY ---
Exam: AP 50 semiupright portable chest film from 04/23/2021. Comparison: AP upright portable chest film from 04/22/2021. Indication: On ventilator; positive Covid-19. Findings: Endotracheal tube tip is seen about 3.5 cm above the galdino in satisfactory position. It appears the NG tube has been advanced. It now courses off the inferior margin of the film which is at least as far as the proximal body portion of the stomach. Multiple EKG leads are seen in place. The heart size remains normal. Prior small dense consolidation within the inferior aspect of the right upper lobe has partially resolved. There appears to be some mild focal air space infiltrate within the right infrahilar projection which was partially obscured by an EKG lead yesterday. I also note a couple parallel curvilinear bands of infiltrate which obscures the medial half of the left hemidiaphragm and causes increased density behind the heart at the medial left lung base. Other mild diffuse bilateral groundglass opacifications appear less pronounced with improved aeration of the upper two thirds of the left lung, the right lung apex, and the lateral right lung base. There is no pneumothorax or pleural fluid. No acute osseous process is seen. Impression: 1. Endotracheal tube and NG tube in satisfactory position, as discussed above. 2. Prior small airspace consolidation with the inferior aspect of the right upper lobe appears improved. There also appears to be a small airspace infiltrate within the right infrahilar projection which I believe is about the same. There is probably slightly improved aeration at the left lung base, although two parallel bands of consolidated infiltrate remain at the left lung base and retrocardiac region. 3. Other mild diffuse bilateral groundglass opacities within the lungs appear slightly improved. No pleural effusion is evident.
--- NOTE | 2021-04-23 08:34 | PROG NOTE ---
CONSULT DATE: 04/22/2021 Events noted. Chart reviewed. HISTORY: The patient remains on mechanical ventilator. Oxygenation remains marginal. FIO2 had to be increased back to 100%. Currently he is sedated, chemically paralyzed with analgesics on board. Afebrile, heart rate is 90, blood pressure 137/76. Saturating 94%. PHYSICAL EXAMINATION: HEENT: Normocephalic. Oral exam limited. ET tube and OG tube are in place. CVS: First and second heart sounds are normal, regular, rhythmic. RESPIRATORY: Shows diminished breath sounds, occasional posterior crackles are heard. ABDOMEN: Soft. EXTREMITIES: Trace edema is noted. LABORATORY DATA AND TESTS: On assist controlled rate of 16, tidal volume of 600, FIO2 of 80% and PEEP of 15, pH 7.50, pCO2 of 43 and pO2 of 135. White count 27.2, hemoglobin 11, hemoglobin 37, PLT 507,000. D-dimer is 821. Sodium 137, potassium 4.6, chloride 96, bicarb 35, glucose 129, BUN 13, creatinine 0.6. ASSESSMENT: This is a 25 year old male admitted with: 1) Acute severe hypoxic respiratory failure. 2) COVID-19 infection with viral pneumonia. 3) Obesity. RECOMMENDATIONS: 1) Continue mechanical ventilation although the patient's oxygen appeared well on morning gas, he had an episode of desaturation requiring incremental increase in FIO2 back to 100% currently saturations are in low 90's. 2) Will await ABG in the a.m. before reducing FIO2. 3) Continue supportive care. 4) Initiation of nutritional support. 5) The patient's body habitus will preclude pronation therapy by RotoProne bed. PROGNOSIS: Remains guarded.
[2021-04-23] MEDS: Lubrifresh P.M. 3.5 gm Ointment OP SCH (09:14)
[2021-04-23] MEDS: CHLORHEXIDINE GLUCONATE MM SCH (09:14)
[2021-04-23] MEDS: OLUMIANT PO SCH (09:16)
[2021-04-23] MEDS: ENOXAPARIN SODIUM SQ SCH (09:17)
[2021-04-23] MEDS: DECADRON 10MG INJ. IV SCH (09:17)
[2021-04-23 15:11] VITALS: BP 142/82; PULSE 93; O2SAT 96
--- NOTE | 2021-04-23 15:24 | PROG NOTE ---
DATE: 04/23/2021 Events noted. Chart reviewed. HISTORY: The patient remains sedated, clinically paralyzed on mechanical ventilator. He again desaturated last night requiring FIO2 to be increased up to 100%. Currently he is saturating 97% on 100% FIO2 and this was reduced down 90%. Heart rate is 90, blood pressure 147/75. Saturating 97%. PHYSICAL EXAMINATION: HEENT: Normocephalic. Oral exam limited. NG tube and OG tube are in place. NECK: Supple. CVS: First and second heart sounds are normal, regular, rhythmic. RESPIRATORY: Shows diminished breath sounds. ABDOMEN: Soft. EXTREMITIES: Trace edema is noted. LABORATORY DATA AND TESTS: White count 25.6, hemoglobin 10.3, hematocrit 34.1, PLT 469,000. D-dimer 953. Sodium 139, potassium 4.4, chloride 96, bicarb 33, glucose 135, BUN 18, creatinine 0.64. Vancomycin trough 15.58. ABG pH is 7.46, pCO2 48 and pO2 102 on assist control, rate of 16, tidal volume 600, FIO2 100% and PEEP of 15. Rate was reduced to 14 and FIO2 to 90%. Chest x-ray noted. ASSESSMENT: This is a 25-year-old male admitted with: 1) Acute severe hypoxic respiratory failure. 2) COVID-19 infection and viral pneumonia. 3) Obesity. RECOMMENDATIONS: 1) Continue present treatment. 2) The patient is covered with broad spectrum antibiotics. Leukocytosis likely reactive. 3) Continue to decrease FIO2 at or above 94%. 4) Continue other supportive care. I will continue to follow.
[2021-04-23] MEDS ORDERED: Ativan 20 MG/10 ML MDV*** 40 MG in D5w 100ML Mini Bag 100 ML 80 ML IV SCH (20:00)
[2021-04-24] MEDS ORDERED: TROUGH DRUG LEVELS IJ ONE (03:30)
--- NOTE | 2021-05-11 15:07 | DS ---
ADMISSION DIAGNOSES: 1) COVID. 2) Anxiety. 3) COVID pneumonia. DISCHARGE DIAGNOSES: 1) COVID. 2) RESPIRATORY FAILURE FROM COVID. 3) OBESITY. 4) PROBABLY SECONDARY PNEUMONIA TO COVID. HOSPITAL COURSE: Initially the patient seemed to be uncomplicated and did well and went home and after several days returned in a lot more distress. His O2 was 90% and he required BiPAP and high flow oxygen. Dr. Ry Thorpe was asked to see him and agreed with management. Chest x-ray showed bilateral pneumonia. D-dimer initially was 800 and kept going up. White count was elevated at 27.2 and was given antibodies and began to get worried about secondary infection. Consulted with Dr. Thorpe again who agreed with adding Rocephin at this time as well as keeping him on the antibodies. He had some minimal improvement on 04/22/2021 and 04/23/2021. White count was 25 on 04/23/2021. O2 was 100% and he had been placed on a ventilator. It took us several days to find a hospital willing to take him and was finally transferred to [facility] on the medications he has been on here. He was intubated on 04/19/2021. PICC line was also placed before discharge for his multiple medications. Second chest x-ray obtained showed there is a worsening left infiltrate and was already worsening on the right, good placement of endotracheal tube. His intubation went seamlessly. His chest x-ray showed multifocal pneumonia most likely viral. PROGNOSIS: [place] to be guarded.
== END 2021-04-23 16:00 | disposition short-term general hospital (02) | DRG 177 ==
LOC: ED 06:41 → MED SURG 10:47 → ICU 04-19 10:11 → MED SURG 04-19 10:12
PROVIDERS: ADMIT Family Medicine; ATTEND Family Medicine
DX: U07.1 COVID-19 (principal); J12.82 Pneumonia due to coronavirus disease 2019; J96.01 Acute respiratory failure with hypoxia; R11.2 Nausea with vomiting, unspecified; R53.1 Weakness; R07.9 Chest pain, unspecified; D72.829 Elevated white blood cell count, unspecified; R94.5 Abnormal results of liver function studies; E66.01 Morbid (severe) obesity due to excess calories; Z79.899 Other long term (current) drug therapy
CPT/HCPCS: 31500; 36000; 36415; 36600; 71045; 71250; 80048; 80053; 80202; 81001; 82150; 82375; 82803; 83605; 83690; 84484; 85025; 85027; 85379; 86308; 87040; 87070; 87077; 87086; 87186; 87400; 87651; 93005; 94002; 94003; 94640; 94760; 94762; 94770; 96372; 96374; 96375; 99284; 99291; G0378; J0330; J0456; J0696; J1100; J1650; J1940; J2060; J2250; J2405; J2930; J3010; A9270-GY; J3370

== ENCOUNTER 2024-09-13 05:17 | Emergency (ER) | payer BC ==
[2024-09-13 05:37] VITALS: TEMP 95.6
--- NOTE | 2024-09-13 05:39 | ERPHSYRPT ---
- History of Present Illness Historian: patient Exam Limitations: no limitations Patient Subjective Stated Complaint: pt states that he began to have abd pain on tuesday. pt states he went to his PCP on tuesday and was told he pulled a muscle. pt states that he has increased abd pain after eating Triage Nursing Assessment: pt ambulated into the er; pt is axo x4; c/o abd pain; pt states 9/10 pain to RUQ and epigastric region; abd is obese, soft, nontender; active bowel sounds in all quads; last bm 09/12/24; pt denies N/V/D; mucus membrane pink and moist; skin PDW; no respiratory distress present; hypertensive Timing/Duration: day(s) (4) Activities at Onset: rest Quality: sharpness, stabbing Abdominal Pain Onset Location: RUQ Pain Radiation: LUQ Severity of Pain-Max: severe Severity of Pain-Current: moderate Modifying Factors: Improves With: nothing. Worsens With: eating, movement, palpation Associated Symptoms: fever/chills, loss of appetite, nausea, No back, No chest pain, No diaphoresis, No diarrhea, No heartburn, No shortness of breath, No vomiting Previous symptoms: no prior history Hx Tetanus, Diphtheria Vaccination/Date Given: No Hx Influenza Vaccination/Date Given: No Hx Pneumococcal Vaccination/Date Given: No <BELEN ABBOTT - Last Filed: 09/13/24 05:48> <MARLENI POOLE - Last Filed: 09/13/24 07:40> - History of Present Illness Time Seen by Provider: 09/13/24 05:39 Physician History: The patient presents with severe chest pain. They have been experiencing severe chest pain since Tuesday morning, located between the sternum and another unspecified area, without radiation. The pain has progressively worsened and is exacerbated by food intake, particularly when the stomach is full. Nausea accompanies the chest pain, though they have not vomited. They have experienced chills earlier but deny any fever. They took an oxycodone pain pill at 3 PM today to manage the pain, which was severe enough to bring them to tears while lying in bed. No history of abdominal surgeries, burning during urination, changes in urina tion frequency, or blood in the urine. Bowel movements are reported as normal. (BELEN ABBOTT) Allergies/Adverse Reactions: Penicillins Allergy (Unknown, Verified 09/13/24 05:21) Home Medications: Montelukast Sodium 10 mg [Singulair 10 MG] 10 mg PO DAILY 09/13/24 [History] Oxycodone HCl/Acetaminophen [Oxycodone-Acetaminophen 5-325] 1 each PO DAILY 09/13/24 [History] Travel Risk - International Travel Have you traveled outside of the country in past 3 weeks: No - Emerging Infectious Disease Are you exhibiting symptoms associated with any current EIDs: Yes Symptoms: Abdominal Pain <BELEN ABBOTT - Last Filed: 09/13/24 05:48> - Review of Systems All Other Systems: Reviewed and Negative <BELEN ABBOTT - Last Filed: 09/13/24 05:48> - Past Medical History Pertinent Past Medical History: No Musculoskeletal History: Fractures Other Medical History: seasonal allergies, old fx of 5th finger on right hand - Past Surgical History Past Surgical History: No - Social History Smoking Status: Light tobacco smoker Exposure to second hand smoke: No Drug Use: none - Social Determinants of Health Will the patient participate in the screening: Yes Do you worry about a steady place to live?: No Do you have any problems with any of the following?: No known problems In the past 12 months,have you had to go without utilities?: No Transportation Issues: No Has anyone in your support network made you feel unsafe?: No Have you or anyone in your house had to go without enough: No <BELEN ABBOTT - Last Filed: 09/13/24 05:48> - Physical Exam General Appearance: no apparent distress, obese Respiratory Exam: normal breath sounds, lungs clear, airway intact, No respiratory distress Cardiovascular Exam: regular rate/rhythm, normal heart sounds, capillary refill <2 sec Gastrointestinal/Abdomen Exam: soft, normal bowel sounds, tenderness (RUQ, epigastric, LUQ), No distention, No mass, No guarding, No rebound Back Exam: normal inspection, No CVA tenderness Extremity Exam: normal inspection Neurologic Exam: alert, oriented x 3, cooperative Skin Exam: normal color, warm, dry, No rash SpO2 Interpretation: normal SpO2: 97 O2 Delivery: Room Air <BELEN ABBOTT - Last Filed: 09/13/24 05:48> - Nursing Vital Signs Nursing Vital Signs: Initial Vital Signs Temperature 95.6 F 09/13/24 05:27 Pulse Rate 99 H 09/13/24 05:27 Respiratory Rate 18 09/13/24 05:27 Blood Pressure 145/121 09/13/24 05:27 O2 Sat by Pulse Oximetry 97 09/13/24 05:27 Pain Scale Pain Intensity 9 - Course Nursing assessment & vital signs reviewed: Yes <BELEN ABBOTT - Last Filed: 09/13/24 05:48> Ordered Tests: Active Orders 24 hr Category Date Time Status ABDOMEN AND PELVIS W/0 CONTRAS [CT] Stat Exams 09/13/24 05:47 Completed CBC W DIFF Stat Lab 09/13/24 06:28 Completed CMP Stat Lab 09/13/24 06:28 Completed LIPASE Stat Lab 09/13/24 06:28 Completed UA W/RFX UR CULTURE Stat Lab 09/13/24 05:48 Completed Lab/Rad Data: Laboratory Result Diagrams 09/13/24 06:28 09/13/24 06:28 Laboratory Results 09/13/24 09/13/24 09/13/24 Range/Units 06:28 06:28 05:48 WBC 12.1 H (4.23-9.07) x10^3/uL RBC 4.97 (4.63-6.08) x10^6/uL Hgb 14.6 (13.7-17.5) g/dL Hct 44.4 (40.1-51.0) % MCV 89.3 (79.0-92.2) fL MCH 29.4 (25.7-32.2) pg MCHC 32.9 (32.3-36.5) g/dL RDW 13.4 (11.6-14.4) % Plt Count 301 (163-337) x10^3/uL MPV 10.1 (9.4-12.4) fL Gran % 64.1 (34.0-67.9) % Immature Gran % (Auto) 2.7 H (0.001-0.429) % Nucleat RBC Rel Count 0.0 (0.00-0.2) % Eos # (Auto) 0.64 H (0.04-0.54) x10^3/uL Immature Gran # (Auto) 0.33 H (0.001-0.031) x10^3u/L Absolute Lymphs (auto) 2.49 (1.32-3.57) x10^3/uL Absolute Monos (auto) 0.80 (0.30-0.82) x10^3/uL Absolute Nucleated RBC 0.00 (0.00-0.012) x10^3u/L Lymphocytes % 20.6 L (21.8-53.1) % Monocytes % 6.6 (5.3-12.2) % Eosinophils % 5.3 (0.8-7.0) % Basophils % 0.7 (0.2-1.2) % Absolute Granulocytes 7.74 H (1.78-5.38) x10^3/uL Basophils # 0.08 (0.01-0.08) x10^3/uL Sodium 137 (135-145) mmol/L Potassium 4.5 (3.5-5.1) mmol/L Chloride 101 (98-107) mmol/L Carbon Dioxide 25 (22-30) mmol/L Anion Gap 15.3 H (5-15) MEQ/L BUN 14 (9-20) mg/dL Creatinine 0.86 (0.66-1.25) mg/dL Estimated GFR 118.7 ML/MIN Glucose 112 H (74-106) mg/dL Calcium 9.6 (8.4-10.2) mg/dL Total Bilirubin 0.50 (0.2-1.3) mg/dL AST 65 H (17-59) U/L ALT 73 H (0-50) U/L Alkaline Phosphatase 79 (38-126) U/L Serum Total Protein 7.9 (6.3-8.2) g/dL Albumin 4.4 (3.5-5.0) g/dL Lipase 79 (23-300) U/L Urine Color Yellow (Yellow) Urine Appearance Clear (Clear) Urine pH 6.0 (4.6-8.0) Ur Specific [place] 1.015 (1.005-1.030) Urine Protein Negative (Negative) Urine Glucose (UA) Negative (Negative) mg/dL Urine Ketones Negative (Negative) Urine Blood Negative (Negative) Urine Nitrite Negative (Negative) Urine Bilirubin Negative (Negative) Urine Urobilinogen 0.2 (0.2) mg/dL Ur Leukocyte Esterase Trace A (Negative) U Hyaline Cast (Auto) NONE SEEN (0-2) /LPF Urine Microscopic RBC 0-2 (0-5) /HPF Urine Microscopic WBC 6-10 A (0-5) /HPF Ur Epithelial Cells None Seen (None Seen) /HPF Urine Bacteria None Seen (None Seen) /HPF Urine Culture Reflexed NO (NO) <BELEN ABBOTT - Last Filed: 09/13/24 05:48> - Progress Counseled pt/family regarding: lab results, diagnosis, need for follow-up, rad results <MARLENI POOLE - Last Filed: 09/13/24 07:40> - Progress Progress Note: Acute Abdominal Pain Severe acute abdominal pain localized between the sternum and upper abdomen, worsening since onset on Tuesday morning. Associated symptoms include nausea, chills, and pain exacerbation with food intake. Differential diagnosis includes gallbladder issues, pancreatitis, and atypical appendicitis. Less likely causes include reflux and constipation. Previous diagnosis of pulled sternum muscle is doubted by the patient. CT scan and lab work are prioritized to evaluate potential causes such as gallstones or pancreatic issues. - Order CT scan of the abdomen to evaluate gallbladder, pancreas, and appendix. - CBC, CMP, Lipase, UA oredered - Took Oxycodone at 0300 - Declines nausea meds at this time (BELEN ABBOTT) 09/13/24 07:[address] scan of the abdomen pelvis was interpreted by the radiologist and I reviewed the impression. The present states hepatomegaly. Normal-appearing appendix. No free air and no free fluid. No acute, emergent findings. 09/13/24 07:38 I interpreted the patient's lab results. Based on the laboratory data results, the patient has positive/trace leukocyte Estrace and pyuria. We will treat this as a urinary tract infection. The remainder of the labs show mildly elevated transaminase levels. (MARLENI POOLE) Medical Desision Making - Diagnostic Testing Diagnostic test were ordered, analyzed, and reviewed by me: Yes Radiological Interpretation: Reviewed by me, Teleradiologist Report - Risk of complications The pt has a mod risk of morbidity or mortality based on: Need for prescription drug management <MARLENI POOLE - Last Filed: 09/13/24 07:40> <BELEN ABBOTT - Last Filed: 09/13/24 05:48> - Departure Departure Disposition: Home Critical Care Time: No <MARLENI POOLE - Last Filed: 09/13/24 07:40> - Departure Clinical Impression: Abdominal pain, Pyuria, Elevated liver transaminase level Condition: Stable Referrals: JENELLE REZA [Primary Care Provider] - Follow up/PCP as directed Additional Instructions: Drink plenty of clear liquids before advancing your diet. Avoid fatty greasy spicy foods. Take your antibiotics and other medication as prescribed. Call your primary care provider today, 09/13/2024, to make arrangements for follow-up appointment for further evaluation management and to obtain an outpatient gallbladder ultrasound if indicated. Prescriptions: Ciprofloxacin [Cipro 500 MG] 500 mg PO BID #14 tablet
[2024-09-13 06:20] LABS: Appearance Clear (Clear); Bacteria None Seen /HPF (None Seen); Bilirubin Negative (Negative); Blood Negative (Negative); Epithelial Cells None Seen /HPF (None Seen); Glucose, Urine Negative (Negative); Hyaline Casts NONE SEEN /LPF (0-2); Ketones Negative (Negative); Leukocyte Esterase Trace (Negative); Nitrite Negative (Negative); Protein,Urine Dip Negative (Negative); RBC 0-2 /HPF (0-5); Specific Gravity 1.015 (1.005-1.030); Urobilinogen 0.2 mg/dL (0.2)
[2024-09-13 06:34] LABS: Absolute Neutrophil Ct (ANC) 7.74 x10^3/uL (1.78-5.38); BASOPHIL % 0.7 % (0.2-1.2); Basophil (Absolute #) 0.08 x10^3/uL (0.01-0.08); Eosinophil % 5.3 % (0.8-7.0); Eosinophil (Absolute #) 0.64 x10^3/uL (0.04-0.54); Hematocrit 44.4 % (40.1-51.0); Hemoglobin 14.6 g/dL (13.7-17.5); IMMATURE GRAN # 0.33 x10^3u/L (0.001-0.031); IMMATURE GRAN % 2.7 % (0.001-0.429); Lymphocyte (Absolute #) 2.49 x10^3/uL (1.32-3.57); Lymphocytes % 20.6 % (21.8-53.1); Mean Cell Volume 89.3 fL (79.0-92.2); Mean Corpuscular Hemoglobin 29.4 pg (25.7-32.2); Mean Corpuscular Hgb Concent. 32.9 g/dL (32.3-36.5); Mean Platelet Volume 10.1 fL (9.4-12.4); Monocytes % 6.6 % (5.3-12.2); Neutrophil % 64.1 % (34.0-67.9); Platelet Count 301 x10^3/uL (163-337); Red Blood Count 4.97 x10^6/uL (4.63-6.08); Red Cell Distribution Width 13.4 % (11.6-14.4); White Blood Count 12.1 x10^3/uL (4.23-9.07)
[2024-09-13 07:02] VITALS: O2SAT 96
--- NOTE | 2024-09-13 07:13 | XRAY ---
CLINICAL HISTORY: abd pain COMPARISON: No TECHNIQUE: Contiguous axial images were obtained from the level of the diaphragm to the pubic symphysis without intravenous or oral contrast. Coronal and sagittal reconstructions were likewise performed and indicated to increase the sensitivity for detecting clinically relevant pathology. CT scan was performed according to ALARA (as low as reasonable achievable). FINDINGS: The visualized lung bases are clear. Evaluation of the abdominal and pelvic visceral organs is limited without intravenous contrast. Liver is enlarged in size measuring 27cm. The unenhanced liver, spleen, pancreas, and adrenal glands are grossly unremarkable. The gallbladder is present. The kidneys are normal in size and attenuation without obvious calcification. There is no hydronephrosis or perinephric stranding. The ureters are normal in caliber. No adenopathy or fluid collections are seen. No evidence of focal or diffuse bowel wall thickening or evidence of bowel obstruction is seen. The appendix is visualized in the right lower quadrant and appears within normal limits. The aorta is normal in caliber. The urinary bladder is normal in contour. Pelvic viscera are grossly unremarkable. No aggressive appearing osseous lesions are identified. IMPRESSION: 1. Hepatomegaly. Electronically Signed by: Roge Alejo MD. (09/13/2024 07:10:06 EST)
[2024-09-13 07:29] LABS: ALBUMIN 4.4 g/dL (3.5-5.0); ANION GAP 15.3 MEQ/L (5-15); BILIRUBIN,TOTAL 0.5 mg/dL (0.2-1.3); Calcium 9.6 mg/dL (8.4-10.2); Creatinine 1 0.86 mg/dL (0.66-1.25); EST GLOMERULAR FILTRATION RATE 118.7 ML/MIN; Potassium 4.5 mmol/L (3.5-5.1); Total Protein 7.9 g/dL (6.3-8.2)
[2024-09-13] MEDS: ZOFRAN ODT 4 MG PO ONE (08:05)
[2024-09-13] MEDS: Hydromorphone 1 mg/ml Injection IM ONE (08:05)
[2024-09-13 08:07] VITALS: BP 128/80; PULSE 80; RESP 18
== END 2024-09-13 08:00 | disposition home or self-care (01) ==
LOC: ED 05:17
DX: R10.9 Unspecified abdominal pain (principal); R82.81 Pyuria; R74.01 Elevation of levels of liver transaminase levels; R07.9 Chest pain, unspecified; Z79.891 Long term (current) use of opiate analgesic; Z79.899 Other long term (current) drug therapy; Z72.0 Tobacco use
CPT/HCPCS: 36415; 74176; 80053; 81001; 83690; 85025; 99284